=== PATIENT | male | born 1955 | race Caucasian/White ===

== ENCOUNTER 2019-10-16 12:38 | Outpatient (CLI) | payer OTHER, SELFPAY ==
[2019-10-16 13:34] LABS: Blood Urea Nitrogen 29 mg/dL (9-20); Carbon Dioxide 30 mmol/L (22-30); Chloride 100 mmol/L (98-107); Cholesterol 130 mg/dL (0-200); Estimated Glomerular Filt Rate > 60; Glucose 98 mg/dL (75-110); HDL Direct 42 mg/dL; Potassium 3.8 mmol/L (3.4-5.0); Sodium 140 mmol/L (137-145); Triglycerides 84 mg/dL (<150)
[2019-10-16 13:45] LABS: LDL Cholesterol Direct 65 mg/dL
[2019-10-16 14:05] LABS: Prostate Specific Antigen 4.1 ng/mL (< OR = 4.0)
== END 2019-10-16 12:39 | disposition home or self-care (01) ==
PROVIDERS: PCP Internal Medicine; Visit Provider Nurse Practitioner
DX: I10 Essential (primary) hypertension (principal); N40.0 Benign prostatic hyperplasia without lower urinary tract symptoms; Z13.6 Encounter for screening for cardiovascular disorders
CPT/HCPCS: 36415; 80048; 80061; 84153

== ENCOUNTER → 2019-10-30 13:50 | Outpatient (REF) | payer OTHER, SELFPAY | LOC: ANHLAB 13:50 | PROVIDERS: PCP Internal Medicine; Visit Provider Nurse Practitioner Family | DX: D49.2 Neoplasm of unspecified behavior of bone, soft tissue, and skin (principal) | CPT/HCPCS: 88305 ==

== ENCOUNTER 2020-01-08 00:34 | Day surgery (SDC) | payer OTHER, SELFPAY ==
[2020-01-02 09:54] VITALS: BMI 29.2
--- NOTE | 2020-01-07 17:32 | WPDANESEPP ---
Anes - Eval Pre Procedure Procedure: Colonoscopy Operation Date: 01/08/20 08:00 Proposed Procedures p Colonoscopy - Clarence Sorenson MD Date/Time: 01/07/20 17:32 Surgeon: Yas Preop Diagnosis: Ulcerative colitis Pre Op Diagnosis: ulcerateive colitis Patient Data Age: 64 Gender: M Height: 5 ft 11 in Weight: 95 kg Allergies Allergy/AdvReac Type Severity Reaction Status Date / Time oxycodone Allergy Intermediate Itching Verified 01/02/20 09:56 Penicillins Allergy Mild RASH Verified 01/02/20 09:56 Home Medications Medication Instructions Recorded Confirmed Type aspirin 81 mg tablet,delayed 81 mg PO DAILY 07/05/19 01/02/20 History release azathioprine 50 mg tablet 150 mg PO DAILY tablet 07/05/19 01/02/20 History omeprazole 40 mg capsule,delayed 40 mg PO DAILY 07/05/19 01/02/20 History release tamsulosin 0.4 mg capsule 0.4 mg PO DAILY 07/05/19 01/02/20 History beclomethasone dipropionate 80 1 inhalation INHALATION Q12H #10.6 07/26/19 01/02/20 Rx mcg/actuation HFA breath activated gm aerosol albuterol sulfate 90 mcg/actuation 2 puff INHALATION Q6H PRN #6.7 gm 09/17/19 01/02/20 Rx aerosol inhaler fluticasone propionate 50 1 spray NASAL BID #18.2 ml 09/17/19 01/02/20 Rx mcg/actuation nasal spray,suspension lisinopril 20 See Rx Instructions .ROUTE 11/19/19 01/02/20 Rx mg-hydrochlorothiazide 25 mg tablet .COMPLEX #90 tablet montelukast 10 mg tablet 10 mg PO DAILY #90 tablet 11/20/19 01/02/20 Rx hydrocodone 7.5 mg-acetaminophen 1 tablet PO Q6H PRN #120 tablet 12/12/19 01/02/20 Rx 325 mg tablet balsalazide See Rx Instructions .ROUTE .COMPLEX 01/02/20 01/02/20 History Patient hx anesthesia problems: none Family hx anesthesia problems: none PMFSH Past Medical History Medical History (Updated 01/07/20 @ 17:35 by Rod Valladares CRNA) Back pain BPH w/o urinary obs/LUTS Essential hypertension Heartburn Hemorrhoids History of basal cell carcinoma (BCC) of skin Pulmonary embolism, bilateral Rectal hemorrhage due to ulcerative colitis Superficial thrombophlebitis of left upper extremity Ulcerative colitis with complication Umbilical hernia Uncomplicated asthma Ventral hernia without obstruction or gangrene Surgical History Surgical History Presence of right artificial knee joint Family History Family History Sibling Patient's sister is in good health Patient's brother is in good health Father Family history of dementia Patient's father is Family history of arthritis Mother Patient's mother is Family history of arthritis Social History Social History Smoking status: Never smoker Alcohol intake: never Exam Day of Procedure 01/07/20 17:32
[2020-01-08 06:42] VITALS: BMI 30.2
[2020-01-08 06:43] VITALS: BP 147/77; PULSE 67; RESP 18; TEMP 36.8; O2SAT 94
[2020-01-08] MEDS: LACTATED RINGERS 1,000 ML 150 ML IV CONT (06:55)
--- NOTE | 2020-01-08 07:18 | P.PNAN_ITS ---
Anes - Eval Final PreProcedure Day of Procedure 01/08/20 07:18 Patient weight: obese Heart: regular rate and rhythm Lungs: clear to auscultation Airway: Mallampati scale class 1 Neurological: alert and oriented Last oral intake: >/= 8 hours ASA classification: III Emergent: no Anesthetic plan: proceed Anesthesia type and monitoring: general GIVS and standard monitoring Informed Consent: The patient's anesthetic plan and its attendant risks and be nefits were discussed with the patient/family/POA. Questions were solicited and answers provided to the satisfaction of the patient/family/POA.
--- NOTE | 2020-01-08 08:07 | WPDGICN ---
Assessment and Plan Assessment and plan (1) Ulcerative colitis: Code(s): K51.90 - Ulcerative colitis, unspecified, without complications Status: Acute Assessment and Plan: Patient known to have left-sided ulcerative colitis recent symptoms suggestive recent flare. Plan is for colonoscopy to assess status of his colitis and adjust his medications. As symptoms improve enemas will be used less frequently. Further recommendations will be given after endoscopy. (2) Rectal bleeding: Code(s): K62.5 - Hemorrhage of anus and rectum Status: Acute (3) Hemorrhoids: Code(s): K64.9 - Unspecified hemorrhoids Status: Acute Assessment and Plan: Patient reports his hemorrhoids have flared up endoscopy will help determine amount of bleeding from colitis versus is hemorrhoids. Anusol or preparation H are suggested in the interim period and starting to add fiber to his diet may also be beneficial. GI Consult Note Consult date/time: 01/08/20 08:07 HPI: Adam Renae is a 64 year old male Seen in evaluation at the request Dr. Antony Doran. Patient has a history of left-sided ulcerative colitis. Recently had a flare of UC in the fall of 2018. He recently has had reported at least 5 bowel movements a day associated with watery stools. He occasionally has bright red blood per rectum. Over the last month has had decline in the frequency of his bowel movements in decline in the amount of bleeding. He states pain when it occurs is in the low bilateral portion of the abdomen. He denies any weight loss. Current medications include balsalazide 750 mg 4 tablets p.o. b.i.d., Imuran 150 mg p.o. daily mesalamine enemas at bedtime as needed. Review of Systems Review of Systems: All systems reviewed & are unremarkable except as noted in HPI and below PMFSH Past Medical History Medical History Back pain BPH w/o urinary obs/LUTS Essential hypertension Heartburn Hemorrhoids History of basal cell carcinoma (BCC) of skin Pulmonary embolism, bilateral Rectal hemorrhage due to ulcerative colitis Superficial thrombophlebitis of left upper extremity Ulcerative colitis with complication Umbilical hernia Uncomplicated asthma Ventral hernia without obstruction or gangrene Surgical History Surgical History Presence of right artificial knee joint Family History Family History Sibling Patient's sister is in good health Patient's brother is in good health Father Family history of dementia Patient's father is Family history of arthritis Mother Patient's mother is Family history of arthritis Social History Social History Smoking status: Never smoker Alcohol intake: never Meds Home Medications and Allergies Home Medications Medication Instructions Recorded Confirmed Type aspirin 81 mg tablet,delayed 81 mg PO DAILY 07/05/19 01/08/20 History release azathioprine 50 mg tablet 150 mg PO DAILY tablet 07/05/19 01/08/20 History omeprazole 40 mg capsule,delayed 40 mg PO DAILY 07/05/19 01/02/20 History release tamsulosin 0.4 mg capsule 0.4 mg PO DAILY 07/05/19 01/02/20 History beclomethasone dipropionate 80 1 inhalation INHALATION Q12H #10.6 07/26/19 01/08/20 Rx mcg/actuation HFA breath activated gm aerosol albuterol sulfate 90 mcg/actuation 2 puff INHALATION Q6H PRN #6.7 gm 09/17/19 01/08/20 Rx aerosol inhaler fluticasone propionate 50 1 spray NASAL BID #18.2 ml 09/17/19 01/08/20 Rx mcg/actuation nasal spray,suspension lisinopril 20 See Rx Instructions .ROUTE 11/19/19 01/08/20 Rx mg-hydrochlorothiazide 25 mg tablet .COMPLEX #90 tablet montelukast 10 mg tablet 10 mg PO DAILY #90 tablet 11/20/19 01/02/20 Rx hydrocodone 7.5 mg-acetaminoph
[2020-01-08 08:29] VITALS: BP 102/50; PULSE 61; RESP 24; O2SAT 95
[2020-01-08 08:39] VITALS: BP 105/52; PULSE 59; RESP 20; O2SAT 95
[2020-01-08 08:54] VITALS: BP 130/64; PULSE 56; RESP 19; O2SAT 97
== END 2020-01-08 09:01 | disposition home or self-care (01) ==
PROVIDERS: PCP Internal Medicine; Visit Provider Internal Medicine Gastroenterology
PROC: 0DJD8ZZ Inspection of Lower Intestinal Tract, Via Natural or Artificial Opening Endoscopic (ICD-10-PCS; CPT 45378; principal; 2020-01-08 08:00)
DX: K51.311 Ulcerative (chronic) rectosigmoiditis with rectal bleeding (principal); K57.30 Diverticulosis of large intestine without perforation or abscess without bleeding; K64.8 Other hemorrhoids; I10 Essential (primary) hypertension; N40.0 Benign prostatic hyperplasia without lower urinary tract symptoms; J45.909 Unspecified asthma, uncomplicated; Z85.828 Personal history of other malignant neoplasm of skin; Z86.711 Personal history of pulmonary embolism; Z79.82 Long term (current) use of aspirin
CPT/HCPCS: 45380; 88305; J2704; J7120

== ENCOUNTER 2020-03-04 11:16 | Outpatient (CLI) | payer OTHER, SELFPAY ==
[2020-03-04 17:36] LABS: Prostate Specific Antigen 2.7 ng/mL (< OR = 4.0)
== END 2020-03-04 11:17 | disposition home or self-care (01) ==
LOC: ANHLAB 11:18
PROVIDERS: PCP Internal Medicine; Visit Provider Internal Medicine
DX: R97.20 Elevated prostate specific antigen [PSA] (principal)
CPT/HCPCS: 36415; 84153

== ENCOUNTER 2020-04-22 11:41 | Outpatient (CLI) | payer OTHER, SELFPAY ==
[2020-04-22 12:09] LABS: Hemoglobin A1C 5.4 % (<5.7)
[2020-04-22 12:13] LABS: Alanine Aminotransferase 11 U/L (4-50); Albumin Level 4.2 g/dL (3.5-5.1); Alkaline Phosphatase 55 U/L (38-126); Anion Gap 6 mmol/L (8-16); Aspartate Amino Transferase 24 U/L (17-59); Bilirubin,Total 0.3 mg/dL (0.2-1.3); Blood Urea Nitrogen 21 mg/dL (9-20); Calcium 8.8 mg/dL (8.4-10.2); Carbon Dioxide 29 mmol/L (22-30); Chloride 106 mmol/L (98-107); Cholesterol 150 mg/dL (0-200); Estimated Glomerular Filt Rate > 60; Glucose 99 mg/dL (75-110); HDL Direct 52 mg/dL; Sodium 141 mmol/L (137-145); Triglycerides 188 mg/dL (<150)
[2020-04-22 12:25] LABS: LDL Cholesterol Direct 70 mg/dL
== END 2020-04-22 11:42 | disposition home or self-care (01) ==
LOC: ANHLAB 11:43
PROVIDERS: PCP Internal Medicine; Visit Provider Internal Medicine
DX: R73.02 Impaired glucose tolerance (oral) (principal); E78.5 Hyperlipidemia, unspecified; I10 Essential (primary) hypertension; Z51.81 Encounter for therapeutic drug level monitoring
CPT/HCPCS: 36415; 80053; 80061; 83036

== ENCOUNTER 2020-10-27 13:51 | Outpatient (CLI) | payer OTHER, SELFPAY ==
[2020-10-27 14:29] LABS: Hemoglobin A1C 5.4 % (<5.7)
[2020-10-27 14:31] LABS: Anion Gap 8 mmol/L (8-16); Blood Urea Nitrogen 23 mg/dL (9-20); Calcium 9.1 mg/dL (8.4-10.2); Carbon Dioxide 30 mmol/L (22-30); Chloride 106 mmol/L (98-107); Estimated Glomerular Filt Rate > 60; Glucose 99 mg/dL (75-110); Potassium 3.9 mmol/L (3.4-5.0); Sodium 144 mmol/L (137-145)
[2020-10-29 22:31] LABS: Testosterone Total 199 ng/dL (250-1100)
== END 2020-10-27 13:52 | disposition home or self-care (01) ==
PROVIDERS: PCP Internal Medicine; Visit Provider Internal Medicine
DX: R79.89 Other specified abnormal findings of blood chemistry (principal); R73.02 Impaired glucose tolerance (oral); I10 Essential (primary) hypertension
CPT/HCPCS: 36415; 80048; 83036; 84403

== ENCOUNTER → 2020-11-02 14:46 | Outpatient (REF) | payer OTHER, SELFPAY | LOC: ANHLAB 14:46 | PROVIDERS: PCP Internal Medicine; Visit Provider Nurse Practitioner | DX: L98.9 Disorder of the skin and subcutaneous tissue, unspecified (principal) | CPT/HCPCS: 88305; 88342 ==

== ENCOUNTER → 2021-05-03 14:28 | Outpatient (REF) | payer OTHER, SELFPAY | LOC: ANHLAB 14:28 | PROVIDERS: PCP Internal Medicine; Visit Provider Nurse Practitioner | DX: D49.2 Neoplasm of unspecified behavior of bone, soft tissue, and skin (principal); L57.0 Actinic keratosis | CPT/HCPCS: 88305 ==

== ENCOUNTER 2021-05-03 15:01 | Outpatient (CLI) | payer OTHER, SELFPAY ==
[2021-05-06 00:54] LABS: NIL 0.02 IU/mL; Quantiferon TB Plus, 1T NEGATIVE (NEGATIVE)
== END 2021-05-03 15:02 | disposition home or self-care (01) ==
LOC: ANHLAB 15:04
PROVIDERS: PCP Internal Medicine; Visit Provider Internal Medicine Gastroenterology
DX: K51.90 Ulcerative colitis, unspecified, without complications (principal)
CPT/HCPCS: 36415; 86480

== ENCOUNTER 2021-05-03 15:09 | Outpatient (CLI) | payer OTHER, SELFPAY ==
[2021-05-03 16:02] LABS: Alanine Aminotransferase 17 U/L (4-50); Albumin Level 4.3 g/dL (3.5-5.1); Alkaline Phosphatase 65 U/L (38-126); Anion Gap 9 mmol/L (8-16); Aspartate Amino Transferase 29 U/L (17-59); Bilirubin,Total 0.2 mg/dL (0.2-1.3); Blood Urea Nitrogen 19 mg/dL (9-20); Calcium 8.8 mg/dL (8.4-10.2); Carbon Dioxide 29 mmol/L (22-30); Chloride 99 mmol/L (98-107); Cholesterol 149 mg/dL (0-200); Estimated Glomerular Filt Rate > 60; Glucose 120 mg/dL (65-110); HDL Direct 52 mg/dL; Potassium 3.5 mmol/L (3.4-5.0); Sodium 137 mmol/L (137-145); Triglycerides 186 mg/dL (<150)
[2021-05-03 16:13] LABS: LDL Cholesterol Direct 64 mg/dL
[2021-05-03 17:16] LABS: Prostate Specific Antigen 2.3 ng/mL (< OR = 4.0)
[2021-05-03 17:21] LABS: Hemoglobin A1C 5.9 % (<5.7)
[2021-05-07 11:01] LABS: Testosterone Total 496 ng/dL (250-1100)
== END 2021-05-03 15:10 | disposition home or self-care (01) ==
LOC: ANHLAB 15:12
PROVIDERS: PCP Internal Medicine; Visit Provider Internal Medicine
DX: R79.89 Other specified abnormal findings of blood chemistry (principal); I10 Essential (primary) hypertension; Z51.81 Encounter for therapeutic drug level monitoring; E78.5 Hyperlipidemia, unspecified; Z12.5 Encounter for screening for malignant neoplasm of prostate; R73.03 Prediabetes
CPT/HCPCS: 36415; 80053; 80061; 83036; 84153; 84403; 86480; 88305; G0103

== ENCOUNTER → 2021-11-02 13:25 | Outpatient (REF) | payer OTHER, SELFPAY | LOC: ANHLAB 13:25 | PROVIDERS: PCP Internal Medicine; Visit Provider Nurse Practitioner | DX: L82.1 Other seborrheic keratosis (principal) | CPT/HCPCS: 88305 ==

== ENCOUNTER 2021-11-11 12:45 | Outpatient (CLI) | payer OTHER, SELFPAY ==
[2021-11-11 13:27] LABS: Hemoglobin A1C 5.5 % (<5.7)
[2021-11-11 13:47] LABS: Alanine Aminotransferase 17 U/L (4-50); Albumin Level 4.6 g/dL (3.5-5.1); Alkaline Phosphatase 65 U/L (38-126); Anion Gap 7 mmol/L (8-16); Aspartate Amino Transferase 34 U/L (17-59); Bilirubin,Total 0.8 mg/dL (0.2-1.3); Blood Urea Nitrogen 23 mg/dL (9-20); Calcium 8.7 mg/dL (8.4-10.2); Carbon Dioxide 27 mmol/L (22-30); Chloride 105 mmol/L (98-107); Cholesterol 176 mg/dL (0-200); Estimated Glomerular Filt Rate > 60; Glucose 113 mg/dL (65-110); HDL Direct 46 mg/dL; Potassium 3.6 mmol/L (3.4-5.0); Sodium 139 mmol/L (137-145); Triglycerides 83 mg/dL (<150)
[2021-11-11 13:58] LABS: LDL Cholesterol Direct 101 mg/dL
[2021-11-15 11:26] LABS: Testosterone Total 564 ng/dL (250-1100)
== END 2021-11-11 12:46 | disposition home or self-care (01) ==
LOC: ANHLAB 12:52
PROVIDERS: PCP Internal Medicine; Visit Provider Internal Medicine
DX: E78.5 Hyperlipidemia, unspecified (principal); Z51.81 Encounter for therapeutic drug level monitoring; I10 Essential (primary) hypertension; R79.89 Other specified abnormal findings of blood chemistry; R73.03 Prediabetes; Z79.899 Other long term (current) drug therapy
CPT/HCPCS: 36415; 80053; 80061; 83036; 84403

== ENCOUNTER 2022-03-15 13:44 | Outpatient (CLI) | payer OTHER, SELFPAY ==
[2022-03-15 14:06] LABS: Hematocrit 49.8 % (42.0-52.0); Hemoglobin 15.9 g/dL (14.0-18.0); Mean Corpuscular HGB Conc 31.9 g/dl (32-36); Mean Corpuscular Hemoglobin 29.2 pg (26-34); Mean Corpuscular Volume 91.4 fl (80-100); Platelet Count Result 389 k/mm3 (150-375); Red Blood Count 5.45 M/mm3 (4.6-6.20); Red Cell Distribution Width 18.4 % (11.5-14.5); White Blood Count 8.8 K/mm3 (4.5-10.0)
[2022-03-15 14:34] LABS: Alanine Aminotransferase 15 U/L (6-50); Albumin Level 4.1 g/dL (3.5-5.1); Alkaline Phosphatase 56 U/L (38-126); Anion Gap 4 mmol/L (8-16); Aspartate Amino Transferase 26 U/L (17-59); Bilirubin,Total 0.5 mg/dL (0.2-1.3); Blood Urea Nitrogen 16 mg/dL (9-20); CRP 1.7 mg/dL (<1.0); Calcium 8.4 mg/dL (8.4-10.2); Carbon Dioxide 30 mmol/L (22-30); Chloride 103 mmol/L (98-107); Estimated Glomerular Filt Rate > 60; Glucose 120 mg/dL (65-110); Potassium 3.5 mmol/L (3.4-5.0); Sodium 137 mmol/L (137-145)
== END 2022-03-15 13:45 | disposition home or self-care (01) ==
PROVIDERS: PCP Nurse Practitioner; Visit Provider Nurse Practitioner Family
DX: K51.90 Ulcerative colitis, unspecified, without complications (principal)
CPT/HCPCS: 36415; 80053; 85027; 86140

== ENCOUNTER 2022-03-16 09:20 | Outpatient (CLI) | payer OTHER, SELFPAY ==
[2022-03-16 10:57] LABS: Toxigenic C. Diff NEGATIVE (NEGATIVE)
[2022-03-21 23:02] LABS: Calprotectin, Stool 469 mcg/g
== END 2022-03-16 09:21 | disposition home or self-care (01) ==
PROVIDERS: PCP Nurse Practitioner; Visit Provider Nurse Practitioner Family
DX: K51.90 Ulcerative colitis, unspecified, without complications (principal)
CPT/HCPCS: 83993; 87045; 87427; 87493

== ENCOUNTER 2022-04-21 12:41 | Emergency (ER) | payer OTHER, SELFPAY ==
[2022-04-21 12:48] VITALS: BP 148/68; PULSE 63; RESP 16; TEMP 36.9; O2SAT 97
--- NOTE | 2022-04-21 12:49 | ED.NAVMDI ---
HPI - Nausea/Vomiting/Diarrhea General Stated complaint: Abdominal Pain Time Seen by Provider: 04/21/22 12:49 Source: patient Mode of arrival: ambulatory Limitations: no limitations History of Present Illness HPI Narrative: Mr. Renae is a 67-year-old male patient presenting to the clinic today with complaints of generalized abdominal discomfort, bloody diarrhea greater than 13 stools per day over the last few days. He states he has had this bloody diarrhea for 5 weeks now. Has tried Imodium and Kaopectate to slow the diarrhea down. He has a history of ulcerative colitis. He has tried to contact his GI specialist Dr. Arrieta however he was unable to speak with the office and has left several messages this week. Contacted his PCP and has an appointment next . He comes in today requesting antibiotics for possible C. difficile as he has had this in the past and he thinks that his diarrhea may be due to C. difficile. He denies any abnormal abdominal distention and reports he is having some sharp cramping pains that come and go. Related Data Home Medications Medication Instructions Recorded Confirmed aspirin 81 mg tablet,delayed 81 mg PO DAILY 07/05/19 04/21/22 release (Adult Low Dose Aspirin) loratadine 10 mg tablet 10 mg PO DAILY 10/29/20 04/21/22 budesonide 3 mg 9 mg PO DIRECTED 04/21/22 04/21/22 capsule,delayed,extended release Allergies Allergy/AdvReac Type Severity Reaction Status Date / Time oxycodone Allergy Intermediate Itching Verified 04/21/22 12:43 Penicillins Allergy Mild RASH Verified 04/21/22 12:43 Review of Systems Review of Systems: Pertinent positives per HPI. Patient denies any fever, chills, rash, headache, visual changes, dizziness, cough, runny nose, sore throat, shortness of breath, chest pain, palpitations, nausea, vomiting, constipation, or any urinary issues. [facility] Past Medical History Medical History Back pain BPH w/o urinary obs/LUTS Essential hypertension Heartburn Hemorrhoids History of basal cell carcinoma (BCC) of skin Impaired glucose tolerance Obesity Pulmonary embolism, bilateral Rectal hemorrhage due to ulcerative colitis Superficial thrombophlebitis of left upper extremity Ulcerative colitis with complication Umbilical hernia Uncomplicated asthma Ventral hernia without obstruction or gangrene Surgical History Surgical History Presence of right artificial knee joint Family History Family History Sibling Patient's sister is in good health Patient's brother is in good health Father Family history of dementia Patient's father is Family history of arthritis Mother Patient's mother is Family history of arthritis Social History Social History Smoking status: Never smoker Second hand tobacco smoke exposure: No Alcohol intake: never Substance use: never Comments At the time of my signature, I reviewed and agree with the nursing past medical, surgical, social, and family history. There is no relevant family history pertinent to the patient complaint. Exam Narrative: General: Well-developed, obese, in no apparent distress. Head: Normocephalic, atraumatic. Cardio: Regular rate and rhythm, s1 and s2 normal, no murmur appreciated. Resp: Clear to auscultation bilaterally, no rhonchi, rales, wheezing or rubs. Abdomen: Soft, pliable, nondistended, generalized tenderness to palpation in all 4 quadrants, bowel sounds present in all quadrants, no organomegly, no CVAT tenderness. Course Course Emergency Course: Portions of this record may have been created with voice recognition software. Level of Care: Express Care Visit Vital Signs Vital signs: Vital Signs Temperature 36.9 C
== END 2022-04-21 13:28 | disposition short-term general hospital (02) ==
PROVIDERS: Emergency Provider Nurse Practitioner Family; PCP Internal Medicine
DX: K51.90 Ulcerative colitis, unspecified, without complications (principal); R19.7 Diarrhea, unspecified; N40.0 Benign prostatic hyperplasia without lower urinary tract symptoms; I10 Essential (primary) hypertension; R12 Heartburn; E66.9 Obesity, unspecified; Z68.34 Body mass index [BMI] 34.0-34.9, adult; Z86.711 Personal history of pulmonary embolism; Z86.72 Personal history of thrombophlebitis; Z96.651 Presence of right artificial knee joint
CPT/HCPCS: 99212; G0463

== ENCOUNTER 2022-04-21 14:05 | Emergency (ER) | payer OTHER, SELFPAY ==
[2022-04-21 14:09] VITALS: BP 159/64; PULSE 68; RESP 16; TEMP 36.8; O2SAT 98
--- NOTE | 2022-04-21 14:18 | ED.NAVMDI ---
HPI - Nausea/Vomiting/Diarrhea General Chief complaint: Nausea/Vomiting/Diarrhea Stated complaint: abdominal pain Time Seen by Provider: 04/21/22 14:07 History of Present Illness HPI Narrative: Patient is a 67-year-old male with history of ulcerative colitis here for evaluation of diarrhea and intermittent crampy abdominal pain for the past 6 weeks. Notes urgency with stooling and that his stools are pink-tinged, upon sx onset he was having 6-8 loose stools per day but the frequency has increased to 10-13 episodes day. He has a history of ulcerative colitis and states that this feels like a flare-up; he also has a history of C. difficile and states that this feels similar. Denies recent abx use. He denies relief after Imodium. He is on Imuran and balsalazide for UC, last treated for flare with oral steroids in March. He is a patient of Dr. Sorenson, GI specialist. He went to an urgent care facility today, provider there spoke with the on-call GI doctor, Dr. Davidson, who recommended ED eval for labs and stool cultures. Denies fevers, nausea, vomiting, rash, sick contacts. Last colonoscopy?12/2019, biopsies revealed marked diffuse chronic colitis, were considering flex sigmoidoscopy if unimproved. Related Data Home Medications Medication Instructions Recorded Confirmed aspirin 81 mg tablet,delayed 81 mg PO DAILY 07/05/19 04/21/22 release (Adult Low Dose Aspirin) loratadine 10 mg tablet 10 mg PO DAILY 10/29/20 04/21/22 budesonide 3 mg 9 mg PO DIRECTED 04/21/22 04/21/22 capsule,delayed,extended release Allergies Allergy/AdvReac Type Severity Reaction Status Date / Time oxycodone Allergy Intermediate Itching Verified 04/21/22 14:13 Penicillins Allergy Mild RASH Verified 04/21/22 14:13 Review of Systems Review of Systems: Gen: Denies fevers or chills Eyes: Denies eye pain or visual change ENT: Denies congestion Respiratory: Denies shortness of breath or cough CV: Denies chest pain or palpitations GI: Reports abdominal pain and diarrhea. denies burning, urgency, frequency or hematuria Musculoskeletal: Denies back pain or muscle pain Neuro: Denies numbness, tingling, weakness or focal weakness Skin: Denies rash Except as documented, all other systems reviewed and negative PMFSH Past Medical History Medical History Back pain BPH w/o urinary obs/LUTS Essential hypertension Heartburn Hemorrhoids History of basal cell carcinoma (BCC) of skin Impaired glucose tolerance Obesity Pulmonary embolism, bilateral Rectal hemorrhage due to ulcerative colitis Superficial thrombophlebitis of left upper extremity Ulcerative colitis with complication Umbilical hernia Uncomplicated asthma Ventral hernia without obstruction or gangrene Surgical History Surgical History Presence of right artificial knee joint Family History Family History Sibling Patient's sister is in good health Patient's brother is in good health Father Family history of dementia Patient's father is Family history of arthritis Mother Patient's mother is Family history of arthritis Social History Social History Smoking status: Never smoker Second hand tobacco smoke exposure: No Alcohol intake: never Substance use: never Exam Narrative: APPEARANCE: Well appearing, no pain in distress, well-nourished. Head: Normocephalic and atraumatic. EYES: PERRLA/EOMI, conjunctivae clear NOSE: No nasal drainage EARS: External ear normal in appearance THROAT: Oropharynx is clear. Mucous membranes are moist. NECK: Supple. No adenopathy, no masses. RESPIRATORY: Airway patent, respirations nonlabored. Clear to auscultation bilaterally, no rales, rhonchi, wheezing. CARDIOVASCULAR: Regular ra
[2022-04-21] MEDS: SODIUM CHLORIDE 0.9% IV 1,000 ML 999 ML IV CONT (14:24)
--- NOTE | 2022-04-21 14:29 | PC.NURSE ---
Per KERRIE Robin, no orthostatic blood pressures needed.
[2022-04-21 14:30] LABS: Basophils Percent Auto 0.2 % (0.2-1.2); Eosinophils Absolute Auto 0.2 K/mm3 (0-0.3); Eosinophils Percent Auto 1.8 % (0-4.4); Immature Granulocyte Absolute 0.04 K/mm3 (0.00-0.031); Immature Granulocyte Percent A 0.3 % (0-0.5); Lymphocytes Absolute Auto 1.88 K/mm3 (0.9-3.2); Lymphocytes Percent Auto 15.6 % (18.3-44.2); Mean Corpuscular HGB Conc 32.7 g/dl (32-36); Mean Corpuscular Hemoglobin 29.2 pg (26-34); Mean Corpuscular Volume 89.4 fl (80-100); Mean Platelet Volume 9.5 fl (7.4-10.4); Monocytes Absolute Auto 1.2 K/mm3 (0.1-0.6); Monocytes Percent Auto 10.2 % (2.6-8.5); Neutrophils Absolute Auto 8.7 K/mm3 (1.3-6.7); Neutrophils Percent Auto 71.9 % (45.5-73.1); Platelet Count Result 354 k/mm3 (150-375); Red Blood Count 5.48 M/mm3 (4.6-6.20); Red Cell Distribution Width 19.5 % (11.5-14.5); White Blood Count 12.1 K/mm3 (4.5-10.0)
--- NOTE | 2022-04-21 14:30 | PC.NURSE ---
Patient aware of the need to give urine specimen. States he cannot at this time.
[2022-04-21 15:15] LABS: Anion Gap 7 mmol/L (8-16); Blood Urea Nitrogen 19 mg/dL (9-20); Carbon Dioxide 31 mmol/L (22-30); Chloride 100 mmol/L (98-107); Estimated CRCL calculation 99 ml/min; Potassium 3.5 mmol/L (3.4-5.0); Sodium 138 mmol/L (137-145)
[2022-04-21 15:16] LABS: Alanine Aminotransferase 17 U/L (6-50); Albumin Level 4.3 g/dL (3.5-5.1); Alkaline Phosphatase 55 U/L (38-126); Aspartate Amino Transferase 27 U/L (17-59); Bilirubin,Total 0.7 mg/dL (0.2-1.3); Calcium 8.2 mg/dL (8.4-10.2); Estimated Glomerular Filt Rate > 60; Glucose 97 mg/dL (65-110)
[2022-04-21 15:16] LABS: Appearance Urine Clear (Clear); Bilirubin Urine Negative (Negative); Blood Urine Negative (Negative); Color Urine Yellow (Yellow); Glucose Urine UA Negative (Negative); Ketones Urine Negative (Negative); Leukocyte Esterase Ur Negative LEU/UL (Negative); Nitrate Urine Negative (Negative); Protein Urine Negative (Negative); Urobilinogen Urine 0.2 mg/dL (<2.0)
[2022-04-21 15:17] LABS: Add Urine Microscopic? NO
[2022-04-21 15:18] VITALS: BP 119/76; PULSE 55; RESP 18; O2SAT 99
[2022-04-21 15:22] LABS: INR 1.1; Prothrombin Time 13.6 Seconds (11.1-14.7)
[2022-04-21 15:23] LABS: Partial Thromboplastin Time 31.3 SECONDS (22.3-36.8)
[2022-04-21 15:51] LABS: CRP 3.5 mg/dL (<1.0)
[2022-04-21] MEDS: metroNIDAZOLE 250 MG TABLET 500 MG PO (16:20)
[2022-04-21] MEDS: predniSONE 20 MG TABLET 40 MG PO (16:21)
[2022-04-21 16:33] VITALS: BP 144/72; PULSE 61; RESP 16; TEMP 36.5; O2SAT 97
[2022-04-21 16:34] LABS: Toxigenic C. Diff NEGATIVE (NEGATIVE)
== END 2022-04-21 16:35 | disposition home or self-care (01) ==
PROVIDERS: Physician Assistant; Emergency Provider Emergency Medicine; PCP Internal Medicine
DX: K51.90 Ulcerative colitis, unspecified, without complications (principal); N40.0 Benign prostatic hyperplasia without lower urinary tract symptoms; I10 Essential (primary) hypertension; J45.909 Unspecified asthma, uncomplicated
CPT/HCPCS: 36415; 80053; 81003; 85025; 85610; 85730; 86140; 86850; 86900; 86901; 87493; 96360; 99283; A9270; J7030; J7512

== ENCOUNTER 2022-05-28 16:55 | Emergency (ER) | payer OTHER, SELFPAY ==
--- NOTE | 2022-05-28 17:03 | ED.URI ---
HPI - URI/Sore Throat General Chief Complaint: Upper Respiratory Infection Stated Complaint: Sore Throat, Coughing, Wheezing Time Seen by Provider: 05/28/22 17:03 Source: patient Mode of arrival: ambulatory Limitations: no limitations History of Present Illness HPI Narrative: Mr. Renae is a 67-year-old male patient presenting to clinic today with complaints of cough, sore throat, nasal congestion, wheezing. He reports his tested positive for COVID and influenza 2 days ago. He reports that he developed symptoms last night. MD elicited complaint: cough, sore throat, nasal congestion and other (Wheezing) Related Data Home Medications Medication Instructions Recorded Confirmed azathioprine 50 mg tablet 50 mg PO DAILY 05/28/22 05/28/22 balsalazide 750 mg capsule 750 mg PO DAILY 05/28/22 05/28/22 clemastine 2.68 mg tablet 2.68 mg PO DAILY 05/28/22 05/28/22 gabapentin 300 mg capsule 300 mg PO DAILY 05/28/22 05/28/22 hydrocodone 7.5 mg-acetaminophen 1 tablet PO DIRECTED 05/28/22 05/28/22 325 mg tablet montelukast 10 mg tablet 10 mg PO DAILY 05/28/22 05/28/22 pantoprazole 40 mg tablet,delayed 40 mg PO DAILY 05/28/22 05/28/22 release prednisone 5 mg tablet 5 mg PO DAILY 05/28/22 05/28/22 ropinirole 0.5 mg tablet mg 05/28/22 tamsulosin 0.4 mg capsule mg PO 05/28/22 Allergies Allergy/AdvReac Type Severity Reaction Status Date / Time No Known Allergies Allergy Verified 05/28/22 17:20 Review of Systems Review of Systems: Pertinent positives per HPI. Patient denies any fever, chills, rash, headache, visual changes, dizziness, shortness of breath, chest pain, palpitations, nausea, vomiting, diarrhea, constipation, abdominal pain, or any urinary issues. [facility] Comments At the time of my signature, I reviewed and agree with the nursing past medical, surgical, social, and family history. There is no relevant family history pertinent to the patient complaint. Exam Narrative: General: Well-developed, overweight, in no apparent distress Head: Normocephalic, atraumatic Eyes: Pupils equally round and reactive to light bilaterally, EOM intact, sclera and conjunctive clear, no discharge, lids normal Ears: TMs intact and clear, ear canals clear, no drainage, grossly hearing normal. Nose: Nares patent, clear nasal discharge, mild inflammation, no sinus tenderness. Mouth: Oral pharynx without lesions or masses, good dentition, MMM. Oropharynx mildly red, postnasal drip Neck: Supple, trachea midline, no enlargement of anterior or posterior cervical nodes, no thyroid masses or goiter palpable. Cardio: Regular rate and rhythm, s1 and s2 normal, no murmur appreciated. Resp: Clear to auscultation bilaterally, no rhonchi, rales, wheezing or rubs Course Course Emergency Course: Portions of this record may have been created with voice recognition software. Level of Care: Express Care Visit Vital Signs Vital signs: Vital Signs Temperature 37.2 C 05/28/22 17:08 Pulse Rate 82 05/28/22 17:08 Respiratory Rate 16 05/28/22 17:08 Blood Pressure 140/64 05/28/22 17:08 Pulse Oximetry 97 05/28/22 17:08 Oxygen Delivery Room Air 05/28/22 17:08 Temperature 37.2 C 05/28/22 17:08 Pulse Rate 82 05/28/22 17:08 Respiratory Rate 16 05/28/22 17:08 Blood Pressure 140/64 05/28/22 17:08 Pulse Oximetry 97 05/28/22 17:08 Oxygen Delivery Room Air 05/28/22 17:08 Vital signs reviewed MDM - URI/Sore Throat MDM Narrative Medical decision making narrative: At the time of visit patient is resting comfortably on the exam table. COVID testing and influenza testing completed in clinic. COVID testing and influenza testing was positive for COVID and influenza A in the clinic today. Patient is requesting paxlovid and Tamiflu. He states that they gave his these medications and she seems to be doing better after the 2 days. Supportive measures were discussed with the patient he voiced understanding
[2022-05-28 17:08] VITALS: BP 140/64; PULSE 82; RESP 16; TEMP 37.2; O2SAT 97
== END 2022-05-28 17:38 | disposition home or self-care (01) ==
PROVIDERS: Emergency Provider Nurse Practitioner Family; PCP Internal Medicine
DX: U07.1 COVID-19 (principal); J10.1 Influenza due to other identified influenza virus with other respiratory manifestations
CPT/HCPCS: 87426; 87804; 99203; C9803; G0463

== ENCOUNTER 2022-06-16 02:01 | Day surgery (SDC) | payer OTHER, SELFPAY ==
[2022-06-03 14:40] VITALS: BMI 33.8
[2022-06-16] MEDS: LACTATED RINGERS 1,000 ML 150 ML IV CONT (11:21)
--- NOTE | 2022-06-16 11:22 | WPDHPUPDATE1 ---
History and Physical Update Update Date/Time: 06/16/22 11:22 History and Physical has been reviewed, including an updated exam of the patient. There are NO changes in the patient's condition. Risks, benefits, and alternatives have been discussed and questions answered. Patient agrees to proceed with procedure.
[2022-06-16 11:23] VITALS: BP 124/99; PULSE 90; RESP 18; TEMP 36.3; O2SAT 96; BMI 33.9
--- NOTE | 2022-06-16 11:37 | WPDANESEPPF ---
Anes - Initial Pre Proc Eval Procedure: Operation Date: 06/16/22 12:30 Proposed Procedures p Flexible Sigmoidoscopy - Clarence Sorenson MD Date/Time: 06/16/22 11:37 Surgeon: Clarence Sorenson MD Pre Op Diagnosis: ulcerative colitis Patient Data Age: 67 Gender: M Height: 1.8 m Weight: 110.4 kg Last Vital Signs Temp 97.3 F L 06/16/22 11:23 Pulse 90 06/16/22 11:23 Resp 18 06/16/22 11:23 BP 124/99 H 06/16/22 11:23 Pulse Ox 96 06/16/22 11:23 O2 Del Method Room Air 06/16/22 11:23 Allergies Allergy/AdvReac Type Severity Reaction Status Date / Time oxycodone Allergy Intermediate Itching Verified 06/16/22 11:17 Penicillins Allergy Mild RASH Verified 06/16/22 11:17 Home Medications Medication Instructions Recorded Confirmed Type aspirin 81 mg tablet,delayed 81 mg PO TID 07/05/19 06/16/22 History release (Adult Low Dose Aspirin) fluticasone propionate 110 1 puff inhalation Q12H #12 grams 06/29/20 06/16/22 Rx mcg/actuation HFA aerosol inhaler (Flovent HFA) loratadine 10 mg tablet 10 mg PO DAILY 10/29/20 06/16/22 History lisinopril 20 See Rx Instructions .Route 03/17/21 06/16/22 Rx mg-hydrochlorothiazide 25 mg tablet .COMPLEX #90 tabs cyclobenzaprine 10 mg tablet 10 mg PO TID PRN muscle spasm #30 05/05/21 06/16/22 Rx tabs albuterol sulfate 90 mcg/actuation See Rx Instructions .Route 07/20/21 06/16/22 Rx aerosol inhaler .COMPLEX ##8.5 pantoprazole 40 mg tablet,delayed 40 mg PO QAM #90 tabs 11/12/21 06/16/22 Rx release testosterone 30 mg/actuation (1.5 2 pump topical DAILY #90 mL 02/28/22 06/16/22 Rx mL) transderm solution metered pump prednisone 5 mg tablet 5 mg PO DAILY #242 tabs 04/20/22 06/16/22 Rx ropinirole 0.5 mg tablet 0.5 mg PO DAILY #90 tabs 05/12/22 06/16/22 Rx azathioprine 50 mg tablet 50 mg PO TID 05/28/22 06/16/22 History balsalazide 750 mg capsule 750 mg PO DAILY 05/28/22 06/16/22 History montelukast 10 mg tablet 10 mg PO DAILY 05/28/22 06/16/22 History hydrocodone 7.5 mg-acetaminophen 1 tablet PO Q6H PRN pain #120 tabs 05/31/22 06/16/22 Rx 325 mg tablet tamsulosin 0.4 mg capsule (Flomax) 0.4 mg PO DAILY #90 caps 06/03/22 06/16/22 Rx clemastine 2.68 mg tablet See Rx Instructions .Route 06/13/22 06/16/22 Rx .COMPLEX #180 tabs gabapentin 300 mg capsule 300 mg PO DAILY #30 caps 06/13/22 06/16/22 Rx Patient hx anesthesia problems: none Family hx anesthesia problems: none Results Review: All pre-operative results and documents have been reviewed as part of the pre-operative evaluation. [facility] Past Medical History Medical History Back pain BPH w/o urinary obs/LUTS Essential hypertension Heartburn Hemorrhoids History of basal cell carcinoma (BCC) of skin Impaired glucose tolerance Obesity Pulmonary embolism, bilateral Rectal hemorrhage due to ulcerative colitis Superficial thrombophlebitis of left upper extremity Ulcerative colitis with complication Umbilical hernia Uncomplicated asthma Ventral hernia without obstruction or gangrene Surgical History Surgical History Presence of right artificial knee joint Family History Family History (System 06/02/22 @ 09:44 by Rima Mcginnis) Sibling Patient's sister is in good health Patient's brother is in good health Father Family history of dementia Patient's father is Family history of arthritis Mother Patient's mother is Family history of arthritis Social History Social History (System 06/02/22 @ 09:44 by Rima Mcginnis) Smoking status: Never smoker Second hand tobacco smoke exposure: No Alcohol intake: never Substance use: never Substance use type: does not use Living arrangements: with family Spiritual care concerns: No Anes - Eval Final PreProcedure Day of Procedure 06/16/22 11:37 Patient weight: obese Heart: regular
[2022-06-16 12:10] VITALS: BP 88/53; PULSE 76; RESP 22; O2SAT 95
[2022-06-16 12:20] VITALS: BP 103/49; PULSE 83; RESP 20; O2SAT 94
[2022-06-16 12:30] VITALS: BP 111/55; PULSE 74; RESP 19; O2SAT 95
== END 2022-06-16 12:42 | disposition home or self-care (01) ==
PROVIDERS: PCP Internal Medicine; Visit Provider Internal Medicine Gastroenterology
PROC: 0DJD8ZZ Inspection of Lower Intestinal Tract, Via Natural or Artificial Opening Endoscopic (ICD-10-PCS; CPT 45330; principal; 2022-06-16 12:30)
DX: K92.1 Melena (principal); K51.30 Ulcerative (chronic) rectosigmoiditis without complications; K51.40 Inflammatory polyps of colon without complications; N40.0 Benign prostatic hyperplasia without lower urinary tract symptoms; I10 Essential (primary) hypertension; R12 Heartburn; Z85.828 Personal history of other malignant neoplasm of skin; Z86.711 Personal history of pulmonary embolism; Z86.72 Personal history of thrombophlebitis; Z79.82 Long term (current) use of aspirin; Z79.51 Long term (current) use of inhaled steroids; E66.9 Obesity, unspecified; Z68.33 Body mass index [BMI] 33.0-33.9, adult
CPT/HCPCS: 45380; 45385; 88305; J2704; J7120

== ENCOUNTER 2022-06-29 13:31 | Outpatient (CLI) | payer OTHER, SELFPAY ==
--- NOTE | ~2022-06-29 | XR_ITS ---
EXAMINATION: XR hip RT min 2V DATE: 06/29/2022 13:51 INDICATION: Right hip pain TECHNIQUE: Two views of right hip were obtained. COMPARISON: 12/21/2012 FINDINGS: Bone alignment is normal. There is no fracture. Phleboliths are noted in the pelvis. There is mild osteoarthritis of the hip. Prostatic calcifications are noted. IMPRESSION: 1. Mild osteoarthritis of the hip. Reviewed, dictated and finalized at location A.
== END 2022-06-29 13:32 | disposition home or self-care (01) ==
PROVIDERS: PCP Internal Medicine; Visit Provider Internal Medicine
DX: M25.551 Pain in right hip (principal); M54.16 Radiculopathy, lumbar region; M16.11 Unilateral primary osteoarthritis, right hip
CPT/HCPCS: 73502

== ENCOUNTER 2022-07-01 10:58 | Outpatient (CLI) | payer OTHER, SELFPAY ==
--- NOTE | ~2022-07-01 | MR_ITS ---
EXAMINATION: MR lumbar spine wo con DATE: 07/01/2022 12:02 INDICATION: Low back pain. TECHNIQUE: Magnetic resonance imaging (MRI) of the lumbar spine was performed without intravenous con trast. Sequences included sagittal T2-weighted FSE, sagittal T2-weighted FS FSE, sagittal T1-weighted FSE, and axial T2-weighted FSE. COMPARISON: None FINDINGS: There is 16 degrees dextroscoliosis of thoracic lumbar spine. There is mild chronic anterio r wedging of T11 vertebral body. There is moderately decreased disc height from T11-T12 through 1-L2, severely decreased disc height at L2-L3, moderately decreased disc height at L3-L4, and severely dec reased disc height at L4-L5 and L5-S1 with endplate remodeling. The distal spinal cord signal intensi ty is normal. The conus medullaris is at L1. The following disc levels are specifically discussed: L1-L2: The disc is bulging. There is severe bilateral facet joint osteoarthritis. There is mild bilat eral neural foraminal stenosis. There is mild central canal stenosis. L2-L3: The disc is bulging and has an annular fissure. There is severe right and mild left facet join t osteoarthritis. There is moderate right and mild left neural foraminal stenosis. There is mild cent ral canal stenosis. L3-L4: The disc is bulging and has an annular fissure. There is mild bilateral facet joint osteoarthr itis. There is moderate right and mild left neural foraminal stenosis. There is mild central canal st enosis. L4-L5: The disc is bulging and has an annular fissure. There is severe right and moderate left facet joint osteoarthritis. There is moderate bilateral neural foraminal stenosis. There is mild central ca nal stenosis. L5-S1: The disc is bulging and has an annular fissure. There is severe bilateral facet joint osteoart hritis. There is mild bilateral neural foraminal stenosis. There is mild central canal stenosis. IMPRESSION: 1. Severe lumbar spondylosis. Reviewed, dictated and finalized at location A.
== END 2022-07-01 10:59 | disposition home or self-care (01) ==
PROVIDERS: PCP Internal Medicine; Visit Provider Internal Medicine
DX: M54.16 Radiculopathy, lumbar region (principal); M43.06 Spondylolysis, lumbar region
CPT/HCPCS: 72148

== ENCOUNTER 2022-09-05 15:22 | Emergency (ER) | payer OTHER, SELFPAY ==
[2022-09-05 16:08] VITALS: BP 138/80; PULSE 79; RESP 18; TEMP 36.5; O2SAT 96
--- NOTE | 2022-09-05 17:06 | ED.URI ---
HPI - URI/Sore Throat General Chief Complaint: Upper Respiratory Infection Stated Complaint: Sinus Time Seen by Provider: 09/05/22 17:07 Source: patient, RN notes reviewed and old records reviewed Mode of arrival: ambulatory Limitations: no limitations History of Present Illness HPI Narrative: 67-year-old male presents to the [facility] with complaints of sinus congestion since last night. States he took a plane home from [place] on Monday, 3 days ago and thinks he has COVID symptoms. Did not test at home. Also concern for influenza. Took 1 Mucinex today which is helping his symptoms Related Data Home Medications Medication Instructions Recorded Confirmed aspirin 81 mg tablet,delayed 81 mg PO TID 07/05/19 09/06/22 release (Adult Low Dose Aspirin) azathioprine 50 mg tablet 50 mg PO TID 05/28/22 09/06/22 balsalazide 750 mg capsule 750 mg PO DAILY 05/28/22 09/06/22 montelukast 10 mg tablet 10 mg PO DAILY 05/28/22 09/06/22 Allergies Allergy/AdvReac Type Severity Reaction Status Date / Time oxycodone Allergy Intermediate Itching Verified 09/06/22 15:06 Penicillins Allergy Mild RASH Verified 09/06/22 15:06 Review of Systems Review of Systems: All systems reviewed & are unremarkable except as noted in HPI and below Constitutional: Constitutional: Reports no additional constitutional complaints Eyes: Eyes: Reports no additional eye complaints ENT: Reports as per HPI and Reports nasal congestion Cardiovascular: Cardiovascular: Reports no additional cardiovascular complaints, Denies chest pain and Denies dyspnea Respiratory: Respiratory: Reports no additional respiratory complaints, Denies chest congestion, Denies cough and Denies dyspnea Gastrointestinal: Gastrointestinal: Reports no additional gastrointestinal complaints, Denies abdominal pain, Denies nausea and Denies vomiting Musculoskeletal: Musculoskeletal: Reports no additional musculoskeletal complaints Integumentary/Breasts: Skin/Breast: Reports system reviewed and no additional complaints, except as docu Neurologic: Reports system reviewed and no additional complaints, except as documented Psychiatric: Psychiatric: Reports no additional psychiatric complaints Allergic/Immunologic: Allergic/Immunologic: Reports no additional allergic/immunologic complaints PMFSH Past Medical History Medical History Back pain BPH w/o urinary obs/LUTS Essential hypertension Heartburn Hemorrhoids History of basal cell carcinoma (BCC) of skin Impaired glucose tolerance Obesity LENKA (obstructive sleep apnea) Pulmonary embolism, bilateral Rectal hemorrhage due to ulcerative colitis Superficial thrombophlebitis of left upper extremity Ulcerative colitis with complication Umbilical hernia Uncomplicated asthma Ventral hernia without obstruction or gangrene Surgical History Surgical History History of lumbar surgery Presence of right artificial knee joint Family History Family History Sibling Patient's sister is in good health Patient's brother is in good health Father Family history of dementia Patient's father is Family history of arthritis Mother Patient's mother is Family history of arthritis Social History Social History Smoking status: Never smoker Second hand tobacco smoke exposure: No Alcohol intake: never Substance use: never Substance use type: does not use Lack of Transportation: No Lack of Food: Sometimes True Current Housing: Decline to Answer Concerned About Future Housing: Decline to Answer Difficulty Paying Gas/Electric Bills: Decline to Answer Difficulty Paying for Meds: Decline to Answer Currently Unemployed: Decline to Answer Education: Associate Degree Difficulty w/ Childcare or
== END 2022-09-05 17:58 | disposition home or self-care (01) ==
PROVIDERS: Emergency Provider Nurse Practitioner; PCP Internal Medicine
DX: J06.9 Acute upper respiratory infection, unspecified (principal); I10 Essential (primary) hypertension; Z79.82 Long term (current) use of aspirin; Z85.828 Personal history of other malignant neoplasm of skin; Z20.822 Contact with and (suspected) exposure to COVID-19
CPT/HCPCS: 87426; 87804; 99213; C9803; G0463

== ENCOUNTER 2022-10-10 12:25 | Outpatient (CLI) | payer OTHER, SELFPAY ==
[2022-10-10 13:38] LABS: Hematocrit 49.4 % (42.0-52.0); Hemoglobin 16.4 g/dL (14.0-18.0); Mean Corpuscular HGB Conc 33.2 g/dl (32-36); Mean Corpuscular Volume 96.5 fl (80-100); Mean Platelet Volume 9.3 fl (7.4-10.4); Platelet Count Result 341 k/mm3 (150-375); Red Blood Count 5.12 M/mm3 (4.6-6.20); Red Cell Distribution Width 14.9 % (11.5-14.5)
[2022-10-10 13:51] LABS: Potassium 3.7 mmol/L (3.4-5.0)
[2022-10-10 13:52] LABS: Alanine Aminotransferase 19 U/L (6-50); Albumin Level 4.6 g/dL (3.5-5.1); Alkaline Phosphatase 59 U/L (38-126); Anion Gap 6 mmol/L (8-16); Aspartate Amino Transferase 28 U/L (17-59); Bilirubin,Total 0.8 mg/dL (0.2-1.3); Blood Urea Nitrogen 24 mg/dL (9-20); Calcium 8.9 mg/dL (8.4-10.2); Carbon Dioxide 32 mmol/L (22-30); Chloride 101 mmol/L (98-107); Estimated Glomerular Filt Rate > 60; Glucose 103 mg/dL (65-110); INR 1.1; Partial Thromboplastin Time 30.5 SECONDS (22.3-36.8); Prothrombin Time 13.3 Seconds (11.1-14.7); Sodium 139 mmol/L (137-145)
== END 2022-10-10 12:26 | disposition home or self-care (01) ==
LOC: ANHLAB 12:26
PROVIDERS: PCP Internal Medicine; Visit Provider Neurological Surgery
DX: Z01.818 Encounter for other preprocedural examination (principal); Z79.01 Long term (current) use of anticoagulants
CPT/HCPCS: 36415; 80053; 85027; 85610; 85730; 86850; 86900; 86901

== ENCOUNTER 2022-10-19 12:14 | Outpatient (CLI) | payer OTHER, SELFPAY ==
--- NOTE | 2022-10-19 12:28 | ECG_ITS ---
Measurements Intervals [place] Rate: 64 P: 68 ND: 201 QRS: -29 QRSD: 101 T: 14 QT: 410 QTc: 423 Interpretive Statements SINUS RHYTHM BORDERLINE LEFT AXIS DEVIATION [QRS AXIS < -20] MINIMAL VOLTAGE CRITERIA FOR LVH, CONSIDER NORMAL VARIANT [MEETS CRITERIA IN ONE OF: R(aVL), S(V1), R(V5), R(V5/V6)+S(V1)] NO PREVIOUS ECG AVAILABLE FOR COMPARISON Electronically Signed On 10-19-2022 16:16:41 PELLET PRESS OPERATOR by Yaz Hubbard M.D.
== END 2022-10-19 12:15 | disposition home or self-care (01) ==
PROVIDERS: PCP Internal Medicine; Visit Provider Neurological Surgery
DX: Z01.812 Encounter for preprocedural laboratory examination (principal); Z01.810 Encounter for preprocedural cardiovascular examination; M51.16 Intervertebral disc disorders with radiculopathy, lumbar region
CPT/HCPCS: 36415; 86850; 86900; 86901; 93005

== ENCOUNTER 2022-10-26 00:08 | Day surgery (SDC) | payer OTHER, SELFPAY ==
--- NOTE | 2022-10-18 09:34 | PC.NURSE ---
Report to the Outpatient Waiting Room, entrance under the green pavilion located off [facility], at time _0600 on date _10/26/22 . Planned Procedure Time: 07 . Time changes happen often and if your time is changed the preop area will call you the afternoon before. - You and your visitor will be asked to self-screen and do not enter if you have any COVID symptoms. - Only one visitor is requested with a max of two and NO children visitors are allowed at this time. - The patient visitor may be requested to leave or wait in car when not with patient due to distancing restrictions. - A mask is optional within the hospital at this time. Patients may have clear liquids (water, carbonated beverages, clear teas, apple juice) until 3 hours prior to surgery with a maximum of 20 ounces. - No food from midnight until time of surgery - Infants may have breast milk until 4 hours before surgery, infant formula 6 hours prior to surgery. - Children will be allowed to drink immediately following surgery. If applicable, please bring a bottle or sippy cup to assist with drinking. Juice, water, soda, and popsicles are readily available. For infants on formula, please bring formula the day of surgery. Pacifiers are allowed. Take the following medications with a SIP of water the morning of surgery: ___INHALER ,GABAPENTIN, HYDROCODONE IF NEEDED FOR PAIN DO NOT STOP ANY OF YOUR OTHER PRESCRIPTION MEDICATIONS PRIOR TO SURGERY ?EXCEPT THE FOLLOWING Medications to discontinue per physician __PT STATES HOLD ASPIRIN 7 DAYS PRE OP PER DR PARISI. LAST DOSE 10/18/22. ALL VITAMINS 3 DAYS PRE OP . LAST DOSE 10/22/22 Please no make-up, nail lao, hairspray, perfume, deodorant, or body powder the day of surgery. No jewelry (including any body piercings) or valuables the day of surgery, leave them at home. Please take a shower or bath the night before, or the morning of, surgery with an antibacterial soap. Wear comfortable, loose fitting clothing. Children are encouraged to wear pajamas. - Jewelry must be removed prior to entering the operating room. Rings and piercings that are not removed may be cut off. - The hospital will not accept responsibility for valuables. - Please leave all valuables, including medications, at home the day of surgery. If you are going home after surgery, a licensed trailer truck driver must drive you home. - NO public transportation without another adult if you receive anesthesia. - We recommend that an adult stay with you for 24 hours following discharge. - We also recommend that you do not drive, make important decision, drink alcoholic beverages, or take any drugs that were not prescribed by your health care provider for at least 24 hours after your discharge time. Follow any additional instructions given to you from your surgeon. If you or anyone in your household have experienced Covid symptoms in the past week, please notify your surgeon or the nurse liaison at the phone number below for possible testing. Telephone instructions given to ___PATIENT and asked if any additional questions and then verbalized understanding. Patient advised to call surgeon office or pre surgery nurse liaison [phone] if any additional questions.
[2022-10-18 09:48] VITALS: BMI 34.8
[2022-10-26] VITALS (8 sets, daily range): BP systolic 90–129; BP diastolic 49–67; PULSE 53–71; RESP 12–18; TEMP 36.1–36.8; O2SAT 95–99; BMI 36.0
--- NOTE | ~2022-10-26 | XR_ITS ---
Pain management procedure TECHNIQUE: Fluoroscopy used during L4-5 microdiscectomy performed by [Ingris Ramirez MD] on . Fluoroscopy time is 4 seconds with 2 fluoroscopic images captured. FINDINGS: Correlate with procedure note. IMPRESSION: Fluoroscopy used during L4-5 microdiscectomy. Reviewed, dictated and finalized at location A. TRUCTION FLAGGER
[2022-10-26] MEDS: LACTATED RINGERS 1,000 ML 30 ML IV CONT ×2 (06:40→10:18)
--- NOTE | 2022-10-26 06:52 | WPDANESEPPF ---
Anes - Initial Pre Proc Eval Procedure: Operation Date: 10/26/22 07:30 Proposed Procedures p Right L4-5 Microdiscectomy Lumbar - Ingris Ramirez MD Date/Time: 10/26/22 06:52 Surgeon: Ingris Ramirez MD Pre Op Diagnosis: lumbar disc herniation with radiculopathy Patient Data Age: 67 Gender: M Height: 1.8 m Weight: 117.2 kg Last Vital Signs Temp 36.8 C 10/26/22 06:15 Pulse 71 10/26/22 06:15 Resp 16 10/26/22 06:15 BP 129/63 10/26/22 06:15 Pulse Ox 96 10/26/22 06:15 O2 Del Method Room Air 10/26/22 06:15 Allergies Allergy/AdvReac Type Severity Reaction Status Date / Time oxycodone Allergy Intermediate Itching Verified 10/26/22 06:27 Penicillins Allergy Mild RASH Verified 10/26/22 06:27 Home Medications Medication Instructions Recorded Confirmed Type aspirin 81 mg tablet,delayed 81 mg PO TID 07/05/19 10/18/22 History release (Adult Low Dose Aspirin) lisinopril 20 See Rx Instructions .Route 03/17/21 10/18/22 Rx mg-hydrochlorothiazide 25 mg tablet .COMPLEX #90 tabs albuterol sulfate 90 mcg/actuation See Rx Instructions .Route 07/20/21 10/18/22 Rx aerosol inhaler .COMPLEX ##8.5 testosterone 30 mg/actuation (1.5 2 pump topical DAILY #90 mL 02/28/22 10/18/22 Rx mL) transderm solution metered pump ropinirole 0.5 mg tablet 0.5 mg PO DAILY #90 tabs 05/12/22 10/18/22 Rx azathioprine 50 mg tablet 50 mg PO TID 05/28/22 10/18/22 History balsalazide 750 mg capsule 750 mg PO DAILY 05/28/22 10/18/22 History tamsulosin 0.4 mg capsule (Flomax) 0.4 mg PO DAILY #90 caps 06/03/22 10/18/22 Rx clemastine 2.68 mg tablet See Rx Instructions .Route 06/13/22 10/18/22 Rx .COMPLEX #180 tabs cyclobenzaprine 10 mg tablet 10 mg PO TID PRN muscle spasm #30 07/06/22 10/18/22 Rx tabs fluticasone propionate 110 1 puff inhalation Q12H #12 grams 07/11/22 10/18/22 Rx mcg/actuation HFA aerosol inhaler (Flovent HFA) pantoprazole 40 mg tablet,delayed 40 mg PO QAM #90 tabs 08/03/22 10/18/22 Rx release gabapentin 300 mg capsule 300 mg PO TID #90 caps 09/06/22 10/18/22 Rx (Neurontin) hydrocodone 7.5 mg-acetaminophen 1 tablet PO Q6H PRN pain #110 tabs 10/13/22 10/18/22 Rx 325 mg tablet multivitamin 1 tablet PO DAILY 10/18/22 10/18/22 History nystatin 100,000 unit/mL oral 400,000 unit (4 mL) PO QID #200 mL 10/20/22 10/20/22 Rx suspension montelukast 10 mg tablet 10 mg PO DAILY #90 tabs 10/24/22 Rx Patient hx anesthesia problems: none Family hx anesthesia problems: none Results Review: All pre-operative results and documents have been reviewed as part of the pre-operative evaluation. [facility] Past Medical History Medical History Back pain BPH w/o urinary obs/LUTS Essential hypertension Heartburn Hemorrhoids History of basal cell carcinoma (BCC) of skin Impaired glucose tolerance Obesity LENKA (obstructive sleep apnea) Pulmonary embolism, bilateral Rectal hemorrhage due to ulcerative colitis Superficial thrombophlebitis of left upper extremity Ulcerative colitis with complication Umbilical hernia Uncomplicated asthma Ventral hernia without obstruction or gangrene Surgical History Surgical History History of lumbar surgery Presence of right artificial knee joint Family History Family History Sibling Patient's sister is in good health Patient's brother is in good health Father Family history of dementia Patient's father is Family history of arthritis Mother Patient's mother is Family history of arthritis Social History Social History Smoking status: Never smoker Second hand tobacco smoke exposure: No Alcohol intake: never Substance use: never Substance use type: does not use Lack of Transportation: No Lack of Food: So
--- NOTE | 2022-10-26 07:11 | WPDHPUPDATE1 ---
History and Physical Update Update Date/Time: 10/26/22 07:11 History and Physical has been reviewed, including an updated exam of the patient. There are NO changes in the patient's condition. Risks, benefits, and alternatives have been discussed and questions answered. Patient agrees to proceed with procedure.
[2022-10-26] MEDS: ceFAZolin 2 GM/D5W 50 ML 2 GM/50 ML BAG IVPB (07:26)
[2022-10-26] MEDS: BUPIVACAINE/EPINEPHRINE 0.5% 10 ML VIAL 30 ML INFILTRATE (08:13)
--- NOTE | 2022-10-26 10:42 | W.PM.PROC2 ---
Procedure Note - Detailed Date of Procedure 10/26/22 Pre-op Diagnosis lumbar disc herniation with radiculopathy Post-op Diagnosis Same Procedure Performed Right L4-5 hemilaminectomy, foraminotomy, and medial facetectomy Use of microscope for microsurgical dissection Use of C-arm for fluoroscopy Surgeon Ingris Ramirez MD Forest[employer] Extension Specialist SONAL [place] Anesthesia General Indications Mr. Renae is a 67-year-old male with history of a right L5 radiculopathy which was been resistant to physical therapy, epidural steroid injections, and medical management. Imaging revealed right-sided lateral recess stenosis at L4-5. Surgical intervention in the form of right L4-5 hemilaminectomy, possible diskectomy were recommended. Risks including pain, infection, bleeding, CSF leak, nerve damage, failure to relieve symptoms were discussed. The patient provided written informed consent to proceed. Description of Procedure Patient was brought into the operating room where general anesthesia was induced. The patient was turned prone onto the operating team onto the Jey frame. Pressure points well padded. The C-arm was brought in to assist with visualization of the incision. The incision was marked. The surgical field was performed the restroom sterile fashion. Time-out was performed, and local anesthetic was injected in planned incision Incision was made with a 10 blade scalpel. Soft tissue was dissected to the spinous process with Bovie. Self-retaining retractors placed. The muscles retracted away from the lamina Bovie. Then an up-angled curette was placed under the right L4 lamina, at which time the C-arm was brought in to confirm the appropriate level. The Gould retractor was placed. The microscope was draped and brought into the field for microsurgical dissection. High-speed drill was used to remove lamina on the right side. It was recognized during this exposure that about half of the medial facet was removed as well to a depth anterior to the spinal canal. In order to better identify the structures, the incision was lengthened, and the spinous process was exposed in the midline. The L4 spinous process removed with a Leksell and Kerrison rongeurs. Ligamentum flavum was identified and elevated with up-angled curette as well as Kerrison measures. The dura and proximal nerve root were well exposed. Anterior to the dura, the spinal canal was evaluated with a Mitchell and up-angled curette. Small disc bulge was present; however no large disc herniation was noted, and the nerve was felt to be well decompressed, and so no diskectomy was performed. A Wharton was used to follow the nerve root into the foramen which felt well decompressed. The surgical site was copiously irrigated. Hemostasis was achieved with Surgiflo and the bipolar. Fascia was closed with Vicryl. The surgical field was again copiously. 2-0 Vicryl and 3-0 Vicryl was used to close the dermis and deep dermis. The skin was closed with subcuticular running 4-0 Monocryl. Dermabond was placed over the incision. Patient was returned supine to the stretcher, extubated, and transferred to the PACU without incident. Billing codes: 15179, 96860 Implants None Estimated Blood Loss 100 Drains No Packing No Pathology None sent Complications No immediate complications Condition Stable Disposition PACU [facility] Billing Surgery - Charge Forward: Surgery Billing
== END 2022-10-26 12:30 | disposition home or self-care (01) ==
PROVIDERS: PCP Internal Medicine; Visit Provider Neurological Surgery
PROC: (CPT 63030; principal; 2022-10-26 07:30)
DX: M51.16 Intervertebral disc disorders with radiculopathy, lumbar region (principal); I10 Essential (primary) hypertension; G47.33 Obstructive sleep apnea (adult) (pediatric); N40.0 Benign prostatic hyperplasia without lower urinary tract symptoms; Z86.711 Personal history of pulmonary embolism; J45.909 Unspecified asthma, uncomplicated; E66.9 Obesity, unspecified; Z68.36 Body mass index [BMI] 36.0-36.9, adult; Z79.82 Long term (current) use of aspirin; Z79.51 Long term (current) use of inhaled steroids; Z79.890 Hormone replacement therapy; Z79.891 Long term (current) use of opiate analgesic
CPT/HCPCS: 63030; 36415; 80053; 85027; 85610; 85730; 86850; 86900; 86901; 93005; 99199; J0690; J1100; J2405; J2704; J2710; J3010; J7120

== ENCOUNTER 2022-11-15 14:36 | Outpatient (CLI) | payer OTHER, SELFPAY ==
--- NOTE | 2022-12-08 20:07 | WPDSLEEPSTUD ---
Sleep Study Date of Study: 11/15/22 Ordering Provider: Josh Sanders MD Interpreting Physician: Juju Lozoya MD Sleep Study Type: CPAP Titration Height: 1.8 m Weight: 115.666 kg Body Mass Index: 35.5 Neck Circumference (inches): 17.5 [place]: 2 Reason for Sleep Study Has obstructive sleep apnea, now using CPAP 9 cm with a Salazar and Paykel Simplus mask. He has gained weight, wakes with a dry mouth, gasps for air at night. He is snoring with his mask on; he presents for re-titration. Sleep History Adam Renae is a [id number] with Obstructive sleep apnea currently on 9 cm water pressure. This is not effective. His weight has increased and his AHI is trending upward. He is sent for a repeat CPAP titration to look for an optimal pressure. He occasionally awakens at night feeling short of breath and occasionally awakens with heartburn, belching or coughing. He frequently snores very loudly. He occasionally has trouble sleeping with a cold. Does not wake up gasping for breath at night while he is wearing CPAP. he occasionally sweats excessively at night. He rarely notices his heart pounding or beating irregularly at night. He rarely falls asleep during the day, never involuntarily or while driving. He does not loss of muscle tone with strong emotion. Does not have daytime difficulties due to excessive daytime sleepiness. he does not feel paralyzed on waking or falling asleep. He does not have vivid dreamlike scenes on waking or falling asleep. He does not feel afraid to go to sleep. He does not have nightmares. He frequently remembers his dreams. He occasionally has racing thoughts he has too much caffeine. He does not feel sad, depressed or anxious. He does not have muscular tension. He occasionally notices parts of his body jerking. He frequently kicks at night. He does not have crawling or aching feelings in his legs or any kind of leg pain at night. He does not have morning jaw pain. He does not grind his teeth during sleep. He frequently is bothered by pain during the day and awakened by pain at night. He frequently wakes up feeling stiff in the morning. He occasionally wakes up with sore achy muscles or pain in the neck and spine. Normal bedtime is 9:00 p.m., and he is able to fall asleep within 15 minutes. He wakes 3-6 times during the night moving around in the bed. He repositioned, goes to the bathroom and returns to sleep. His normal wake time is between 8 and 9:00 a.m.. He estimates getting between 8 and 9 hours of sleep at night. He does not generally take naps. He feels better in the evening compared to other times of day. Habits: He never smoked tobacco. Caffeine 1 serving a day. No alcohol or recreational substances. [facility] Past Medical History Medical History Back pain BPH w/o urinary obs/LUTS Essential hypertension Heartburn Hemorrhoids History of basal cell carcinoma (BCC) of skin Impaired glucose tolerance Obesity LENKA (obstructive sleep apnea) Pulmonary embolism, bilateral Rectal hemorrhage due to ulcerative colitis Superficial thrombophlebitis of left upper extremity Ulcerative colitis with complication Umbilical hernia Uncomplicated asthma Ventral hernia without obstruction or gangrene Surgical History Surgical History History of lumbar surgery Presence of right artificial knee joint Family History Family History Sibling Patient's sister is in good health Patient's brother is in good health Father Family history of dementia Patient's father is Family history of arthritis Mother Patient's mother is Family history of arthritis Social History Social History Smoking status: Never smoker Second hand tobacco smoke exposure: No Alcoho
[2022-12-08 21:43] VITALS: BMI 35.5
== END 2022-11-16 06:44 | disposition home or self-care (01) ==
LOC: ANHCSM 14:41
PROVIDERS: PCP Internal Medicine; Visit Provider Internal Medicine Pulmonary Disease
DX: G47.33 Obstructive sleep apnea (adult) (pediatric) (principal); I10 Essential (primary) hypertension
CPT/HCPCS: 95811

== ENCOUNTER 2023-01-07 12:56 | Emergency (ER) | payer OTHER, SELFPAY ==
[2023-01-07 13:30] VITALS: BP 135/77; PULSE 68; RESP 20; TEMP 37.3; O2SAT 98
--- NOTE | 2023-01-07 13:31 | ED.SKABFB ---
HPI - Skin/Abscess/Foreign Bdy General Chief complaint: Skin/Abscess/Foreign Body Stated complaint: Left Hand Thumb Pain Time Seen by Provider: 01/07/23 13:32 Source: patient, RN notes reviewed and old records reviewed Mode of arrival: ambulatory Limitations: no limitations History of Present Illness HPI narrative: 67-year-old male presents to the [facility] with concerns of an unhealing wound for couple of days to the outer aspect of the left thumbnail. Patient states that he pulled a piece of something out. Has been applying Pred, using alcohol and peroxide to it. 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 States that it has been draining some clear fluid. Concern for a foreign body and infection. Onset (ago): day(s) (3-4) Related Data Home Medications Medication Instructions Recorded Confirmed azathioprine 50 mg tablet 50 mg PO TID 05/28/22 01/07/23 balsalazide 750 mg capsule 750 mg PO DAILY 05/28/22 01/07/23 multivitamin 1 tablet PO DAILY 10/18/22 01/07/23 aspirin 81 mg tablet,delayed 81 mg PO DAILY 11/17/22 01/07/23 release (Adult Low Dose Aspirin) vitamin B complex (B 1 tablet PO DAILY 11/17/22 01/07/23 Complex-Vitamin B12 tablet) vitamin E (dl, acetate) 180 mg 180 mg PO DAILY 11/17/22 01/07/23 (400 unit) capsule Allergies Allergy/AdvReac Type Severity Reaction Status Date / Time oxycodone Allergy Intermediate Itching Verified 01/07/23 13:20 Penicillins Allergy Mild RASH Verified 01/07/23 13:20 Review of Systems Review of Systems: All systems reviewed & are unremarkable except as noted in HPI and below Constitutional: Constitutional: Reports no additional constitutional complaints Eyes: Eyes: Reports no additional eye complaints ENT: Reports system reviewed and no additional complaints, except as documented Cardiovascular: Cardiovascular: Reports no additional cardiovascular complaints, Denies chest pain and Denies dyspnea Respiratory: Respiratory: Reports no additional respiratory complaints, Denies chest congestion, Denies cough and Denies dyspnea Gastrointestinal: Gastrointestinal: Reports no additional gastrointestinal complaints, Denies abdominal pain, Denies nausea and Denies vomiting Musculoskeletal: Musculoskeletal: Reports no additional musculoskeletal complaints Integumentary/Breasts: Skin/Breast: Reports as per HPI Neurologic: Reports system reviewed and no additional complaints, except as documented Psychiatric: Psychiatric: Reports no additional psychiatric complaints Allergic/Immunologic: Allergic/Immunologic: Reports no additional allergic/immunologic complaints [facility] Past Medical History Medical History Back pain BPH w/o urinary obs/LUTS Essential hypertension Heartburn Hemorrhoids History of basal cell carcinoma (BCC) of skin Impaired glucose tolerance Obesity LENKA (obstructive sleep apnea) Pulmonary embolism, bilateral Rectal hemorrhage due to ulcerative colitis Superficial thrombophlebitis of left upper extremity Ulcerative colitis with complication Umbilical hernia Uncomplicated asthma Ventral hernia without obstruction or gangrene Surgical History Surgical History History of lumbar surgery Presence of right artificial knee joint Family History Family History Sibling Patient's sister is in good health Patient's brother is in good health Father Family history of dementia Patient's father is Family history of arthritis Mother Patient's mother is Family history of arthritis Social History Social History Smoking status: Never smoker Second hand tobacco smoke exposure: No Alcohol intake: never Substance use: never Substance use type: does not use Lack of Transportation: No Lack of Food: Sometimes True Current [place]
== END 2023-01-07 13:55 | disposition home or self-care (01) ==
PROVIDERS: Emergency Provider Nurse Practitioner; PCP Radiology Diagnostic Radiology
DX: L03.012 Cellulitis of left finger (principal); N40.0 Benign prostatic hyperplasia without lower urinary tract symptoms; R73.02 Impaired glucose tolerance (oral); Z86.711 Personal history of pulmonary embolism; Z86.718 Personal history of other venous thrombosis and embolism; J45.909 Unspecified asthma, uncomplicated; Z85.828 Personal history of other malignant neoplasm of skin
CPT/HCPCS: 99213; G0463

== ENCOUNTER 2023-03-15 14:21 | Outpatient (CLI) | payer OTHER, SELFPAY ==
--- NOTE | ~2023-03-15 | XR_ITS ---
XR hip LT min 3V w AP pelvis DATE: 03/15/2023 14:49 INDICATION: Left hip pain for one month. No injury. TECHNIQUE: AP pelvis. AP, lateral and crosstable lateral views of left hip COMPARISON: None FINDINGS: No fracture or dislocation, avascular necrosis or bone destruction of the left hip is detec rosi. Left hip joint space appears relatively well preserved and symmetric with the right. The pubic symphysis and sacroiliac joints are intact. Multilevel prominent degenerative disc disease of the lumbar spine. IMPRESSION: Multilevel prominent degenerative disc disease of the lumbar spine No significant abnormality of the left hip Reviewed, dictated and finalized at location A.
== END 2023-03-15 14:22 | disposition home or self-care (01) ==
PROVIDERS: PCP Family Medicine; Visit Provider Family Medicine
DX: M25.552 Pain in left hip (principal); M51.36 Other intervertebral disc degeneration, lumbar region
CPT/HCPCS: 73502

== ENCOUNTER → 2023-04-25 13:51 | Outpatient (CLI) | payer OTHER, SELFPAY ==
--- NOTE | ~2023-04-25 | US_ITS ---
EXAMINATION: US renal BI DATE: 04/25/2023 14:36 INDICATION: Nephrolithiasis TECHNIQUE: Multiple ultrasound grayscale images of the kidneys were obtained. COMPARISON: CT abdomen and pelvis dated 01/08/2018 FINDINGS: The right kidney measures 11.9 x 6.1 x 5.5 cm. The left kidney measures 12.7 x 6.5 x 5.6 cm. The kidn eys demonstrate normal echogenicity. Mild dilation of the left renal pelvis without jocelyn hydronephro sis. There is no hydronephrosis in either kidney. No stones identified. The bladder is normal. IMPRESSION: 1. Mild dilation of the left renal pelvis without jocelyn hydronephrosis. Normal right kidney. Reviewed, dictated and finalized at location A.
== END ==
DX: N20.0 Calculus of kidney (principal); N28.89 Other specified disorders of kidney and ureter
CPT/HCPCS: 76775

== ENCOUNTER 2023-04-26 14:30 | Outpatient (RCR) | payer OTHER, SELFPAY ==
--- NOTE | 2023-03-30 14:24 | OPREHPOC ---
Outpatient Therapy Plan of Care This is a Multidisciplinary Plan of Care that may contain components documented by all disciplines (PT, OT, and ST.) PT Problem 1 PT Problem #1 Knowledge Deficit PT Goal 1 Goal Indpendent with HEP Target Visit 8 PT Problem 2 PT Problem #2 Pain PT Goal 1 Goal decreased pain to no more than 1/10 after long walks Target Visit 8 PT Problem 3 PT Problem #3 Impaired Strength PT Goal 1 Goal L hip grossly 4+/5 Target Visit 8
--- NOTE | 2023-03-30 14:24 | PTOPEVAL1 ---
Assessment and note entered by Dhruv Matta, PT Evaluation Information Diagnosis L hip pain Subjective Information Patient reports he has been dealing with L hip pain. Received an injection last Monday and it is feeling better. Prior to hip issues had a bad back and had a surgery October of this year and physical therapy Reported Pain Level Pain Score 2: Self Report Additional Pain Score Comments Patient reports he is feeling a lot better since the injection having just a little twinge today he thinks is from the rain. Assessment PT Clinical Summary Adam is a 68 year old male coming into the clinic with a diagnosis of L hip pain. The patient has decreased strength in the L hip compared to R hip, weak core recruitment, along with discomfort along the IT band. The patient will work with physical therapy on strengthening and following an HEP that he can consistently follow. Modalities and manual therapy as needed for pain control. Plan of Care Interventions Electrical Stimulation,Gait Training,Hot Pack/Cold Pack,Manual Therapy,Neuro Re-education,Patient/ Caregiver Education,Therapeutic Activities, Therapeutic Exercise,Ultrasound Other Interventions cupping, taping, IASTM PT Services Indicated Yes Treatment Frequency and 1-2x/wk for 8 visits Duration These treatments will address the objective and functional deficits as defined above. The patient will be advanced safely and appropriately in order for the patient to progress towards his/her prior level of function. Additional exercises will be introduced and as well as a comprehensive home exercise program upon discharge, if needed, ?to ensure carryover of functional gains achieved in the clinic. This treatment plan has been reviewed and agreement upon by the patient.
--- NOTE | 2023-04-26 16:40 | PTOPDC ---
Assessment and note entered by Dhruv Matta, PT Evaluation Information Assessment Status Discharge Diagnosis L hip pain Subjective Information Patient reports it feels good when he is doing closed chain exercises, but when walking a lot will start getting sore and sometimes spread to the other hip also. (When further questioned patient reports hasn't really taken a long walk since he was in [place] with his over the holidays). Patient thinks that going to the gym and starting to get back to walking with his will help get the pain all the way gone. Assessment PT Clinical Summary Adam is a 68 year old male coming into the clinic with a diagnosis of L hip pain. Patient was evaluated on 03/30/23 and has attended 7 visits . Patient has met his strength goals and has a good HEP for at home and at the gym. Patient has not been walking as exercise. Patient still has a slightly antalgic gait pattern, but strength and range of motion are WFL. Recommend going back to doctor if pain increases from more than 1/10 otherwise discharge with HEP and starting a walking program. Plan of Care PT Services Indicated No
== END 2023-04-27 13:13 | disposition home or self-care (01) ==
LOC: ANHPT 14:30
PROVIDERS: PCP Family Medicine; Visit Provider Family Medicine
DX: M25.552 Pain in left hip (principal)
CPT/HCPCS: 97110; 97161; 97530

== ENCOUNTER 2023-05-04 15:13 | Emergency (ER) | payer OTHER, SELFPAY ==
--- NOTE | 2023-05-04 15:14 | ED.URI ---
HPI - URI/Sore Throat General Chief Complaint: Upper Respiratory Infection Stated Complaint: Sore Throat/Sinus Time Seen by Provider: 05/04/23 15:14 Source: patient Mode of arrival: ambulatory Limitations: no limitations History of Present Illness HPI Narrative: Patient is a 68-year-old male who presents with 4 days of sore throat, congestion and cough. States today he felt feverish and symptoms have worsened. Patient denies any headache, ear pain, nausea, vomiting, diarrhea, shortness of breath. Patient has taking Robitussin, zinc, vitamin-D, Flonase and albuterol inhaler. Denies any shortness of breath. Patient demanding to be prescribed Paxlovid since he was on it last year and it made his symptoms resolved within 3 days. Related Data Home Medications Medication Instructions Recorded Confirmed azathioprine 50 mg tablet 50 mg PO TID 05/28/22 05/04/23 multivitamin 1 tablet PO DAILY 10/18/22 05/04/23 aspirin 81 mg tablet,delayed 81 mg PO DAILY 11/17/22 05/04/23 release (Adult Low Dose Aspirin) vitamin B complex (B 1 tablet PO DAILY 11/17/22 05/04/23 Complex-Vitamin B12 tablet) vitamin E (dl, acetate) 180 mg 180 mg PO DAILY 11/17/22 05/04/23 (400 unit) capsule Allergies Allergy/AdvReac Type Severity Reaction Status Date / Time oxycodone Allergy Intermediate Itching Verified 04/20/23 13:36 Penicillins Allergy Mild RASH Verified 04/20/23 13:36 Review of Systems Review of Systems: All systems reviewed & are unremarkable except as noted in HPI and below Constitutional: Constitutional: Denies body ache(s), Denies chills, Denies fatigue, Denies fever(s), Denies headache(s), Denies malaise and Denies weakness Eyes: Eyes: Denies blurry vision, Denies itchy eyes and Denies loss of vision ENT: Denies otalgia, Denies headache(s), Reports nasal congestion, Denies sinus pain and Reports sore throat Cardiovascular: Cardiovascular: Denies chest pain, Denies irregular heart rhythm and Denies dyspnea Respiratory: Respiratory: Reports cough and Denies dyspnea Gastrointestinal: Gastrointestinal: Denies abdominal pain, Denies diarrhea, Denies nausea and Denies vomiting Musculoskeletal: Musculoskeletal: Denies back pain, Denies myalgias and Denies arthralgias Integumentary/Breasts: Skin/Breast: Denies pruritus and Denies rash Neurologic: Denies headache(s), Denies loss of vision and Denies weakness Psychiatric: Psychiatric: Reports no additional psychiatric complaints Endocrine: Endocrine: Denies fatigue Allergic/Immunologic: Allergic/Immunologic: Denies itchy eyes PMFSH Past Medical History Medical History Back pain BPH w/o urinary obs/LUTS Essential hypertension Heartburn Hemorrhoids History of basal cell carcinoma (BCC) of skin Impaired glucose tolerance Obesity LENKA (obstructive sleep apnea) Pulmonary embolism, bilateral Rectal hemorrhage due to ulcerative colitis Superficial thrombophlebitis of left upper extremity Ulcerative colitis with complication Umbilical hernia Uncomplicated asthma Ventral hernia without obstruction or gangrene Surgical History Surgical History History of lumbar surgery Presence of right artificial knee joint Family History Family History Sibling Patient's sister is in good health Patient's brother is in good health Father Family history of dementia Patient's father is Family history of arthritis Mother Patient's mother is Family history of arthritis Social History Social History Smoking status: Never smoker Second hand tobacco smoke exposure: No Alcohol intake: never Substance use: never Substance use type: does not use Lack of Transportation: No Current Housing: Decline to Answer Concerned About [facility]
[2023-05-04 15:24] VITALS: BP 125/52; PULSE 76; RESP 18; TEMP 37.6; O2SAT 96
== END 2023-05-04 16:06 | disposition home or self-care (01) ==
PROVIDERS: Emergency Provider Nurse Practitioner Family; PCP Family Medicine
DX: U07.1 COVID-19 (principal); I10 Essential (primary) hypertension; R12 Heartburn; E66.9 Obesity, unspecified; Z68.32 Body mass index [BMI] 32.0-32.9, adult; Z86.711 Personal history of pulmonary embolism; Z86.718 Personal history of other venous thrombosis and embolism; J45.909 Unspecified asthma, uncomplicated; N40.0 Benign prostatic hyperplasia without lower urinary tract symptoms; Z85.828 Personal history of other malignant neoplasm of skin; Z79.82 Long term (current) use of aspirin
CPT/HCPCS: 87426; 99213; C9803; G0463

== ENCOUNTER 2023-10-24 11:18 | Outpatient (CLI) | payer OTHER, SELFPAY ==
--- NOTE | ~2023-10-24 | XR_ITS ---
XR thoracic spine 2V DATE: 10/24/2023 13:02 INDICATION: Thoracic back pain. No injury. TECHNIQUE: AP, lateral and swimmer views COMPARISON: None FINDINGS: Moderately severe degenerative disease and mild retrolisthesis at C3-4, C4-5, C5-6. Severe degenerative disease at C6-7. There is dextroscoliosis of the thoracolumbar spine. Diffuse idiopathic skeletal hyperostosis of the thoracic or lumbar spine. The thoracic pedicles appear intact. No thoracic spine fracture or bone destruction is evident. No pa raspinal soft tissue thickening is noted. C3 IMPRESSION: Multilevel moderately severe to severe degenerative disease of the cervical spine with as sociated mild retrolisthesis at C3-4 and C4-5 and C5-6 Thoracolumbar dextroscoliosis Diffuse idiopathic skeletal hyperostosis of the thoracolumbar spine Reviewed, dictated and finalized at location L. TELEPHONE TRIAGE IMPRESSION: Multilevel moderately severe to severe degenerative disease of the cervical spine with associated mild retrolisthesis at C3-4 and C4-5 and C5-6 Thoracolumbar dextroscoliosis Diffuse idiopathic skeletal hyperostosis of the thoracolumbar spine
== END 2023-10-24 11:19 | disposition home or self-care (01) ==
PROVIDERS: PCP Family Medicine; Visit Provider Neurological Surgery
DX: M54.6 Pain in thoracic spine (principal); M50.31 Other cervical disc degeneration, high cervical region; M41.82 Other forms of scoliosis, cervical region; M48.15 Ankylosing hyperostosis [Forestier], thoracolumbar region
CPT/HCPCS: 72070

== ENCOUNTER 2023-12-11 13:33 | Outpatient (CLI) | payer OTHER, SELFPAY ==
--- NOTE | ~2023-12-11 | XR_ITS ---
XR lumbar spine 2-3V DATE: 12/11/2023 14:13 INDICATION: Back pain TECHNIQUE: AP, lateral, coned lateral lumbosacral views COMPARISON: None FINDINGS: There is prominent degenerative spurring in the lower thoracic spine. There is mild lumbar levoscoliosis. There is moderately severe degenerative disc disease at L3-4 and severe degenerative disc disease at the remaining lumbosacral interspaces. The included lower thoracic and lumbar pedicles are intact. No fracture or bone destruction is eviden t. Slight anterolisthesis at L2-3. There is degenerative change at the apophyseal joints. No spondylolis thesis is noted otherwise. The sacroiliac joints are intact. IMPRESSION: Mild lumbar levoscoliosis Severe degenerative disc disease Reviewed, dictated and finalized at location B.
== END 2023-12-11 13:34 | disposition home or self-care (01) ==
LOC: ANHIMG 13:34
PROVIDERS: PCP Family Medicine; Visit Provider Family Medicine
DX: M54.50 Low back pain, unspecified (principal); M41.86 Other forms of scoliosis, lumbar region; M51.36 Other intervertebral disc degeneration, lumbar region
CPT/HCPCS: 72100

== ENCOUNTER 2024-03-20 10:19 | Outpatient (CLI) | payer OTHER, SELFPAY ==
--- NOTE | ~2024-03-20 | MR_ITS ---
MRI of the cervical spine Clinical History: Pain Technique: Axial T2-weighted and gradient images, and sagittal T1-weighted, T2-weighted, and STIR alva ges were acquired. Findings: There is no fracture or subluxation of cervical spine. Vertebral bodies maintain normal hei ght. No suspicious bone marrow signal abnormality seen. At C2-C3, there is minimal disc bulge and minimal facet arthropathy. No central canal stenosis, cord compression, or neural foraminal narrowing. At C3-C4, there is moderate to advanced degenerative disc narrowing. There is disc osteophyte complex with mild canal stenosis and mild cord compression. There is bilateral neural foraminal narrowing wi th mild facet arthropathy. At C4-C5, there is moderate degenerative disc narrowing. There is disc osteophyte complex resulting i n moderate canal stenosis and associated cord compression. There is bilateral neural foraminal narrow ing with mild bilateral facet arthropathy. At C5-C6, there is moderate degenerative disc narrowing. There is disc osteophyte complex with mild c anal stenosis stenosis and mild cord compression. There is severe bilateral neural foraminal narrowin g. At C6-C7, there is disc osteophyte complex with mild canal stenosis but no jocelyn cord compression. Th ere is bilateral neural foraminal narrowing. No abnormal signal seen in the spinal cord. Paravertebral soft tissues are unremarkable. Impression: Moderate to advanced degenerative spondylosis, as detailed above, especially from C3 through C6. Reviewed, dictated and finalized at [facility]. Impression: Moderate to advanced degenerative spondylosis, as detailed above, especially fr om C3 through C6.
--- NOTE | ~2024-03-20 | MR_ITS ---
MRI of the thoracic spine Clinical History: Pain Technique: Axial T2-weighted and gradient images, and sagittal T1-weighted, T2-weighted, and STIR alva ges were acquired. Findings: There is no fracture or subluxation of the thoracic spine. Vertebral bodies maintain normal height and line. No suspicious bone marrow signal abnormality seen. Multiple Schmorl's nodes are pre sent at the lower thoracic spine. There is moderate to advanced degenerative disc change throughout t he lower half of the thoracic spine. There is also advanced degenerative change at T2-T3. There is sc attered facet arthropathy throughout the thoracic spine, especially the lower half, no jocelyn spinal c anal stenosis or cord compression identified in the thoracic spine. There is advanced bilateral neura l foraminal narrowing at T10-T11. There is advanced left neural foraminal narrowing at T9-T10. No abnormal signal seen in the spinal cord. Paravertebral soft tissues are unremarkable. Impression: [id number] degenerative spondylosis of the thoracic spine, as detailed above. No acute fracture or subluxation. Reviewed, dictated and finalized at location M. Impression: [id number] degenerative spondylosis of the thoracic spine, as detailed ab ove. No acute fracture or subluxation.
== END 2024-03-20 10:20 ==
LOC: MICIMG 10:20
PROVIDERS: PCP Family Medicine; Visit Provider Family Medicine
DX: M47.894 Other spondylosis, thoracic region (principal); M47.892 Other spondylosis, cervical region
CPT/HCPCS: 72141; 72146

== ENCOUNTER 2024-04-01 08:54 | Outpatient (CLI) | payer OTHER, SELFPAY ==
--- NOTE | ~2024-04-01 | CT_ITS ---
CT lumbar spine wo con Ordering provider: Liv Khanna History: 69 years Male with . Chronic midline low back pain . Comparison: None. Technique: CT lumbar spine without contrast. Automated exposure control and iterative reconstruction technique were employed. The dose-length product was 958.90 mGy-cm. FINDINGS: VERTEBRAE: Normal height and alignment. No subluxation or visible acute fracture. Levoscoliosis. DISC SPACES: Narrowing of all the disc spaces is noted with degenerative changes. Multilevel facet jason int disease. T12-L1: No stenosis. Diffuse disc bulge with osteophyte formation. L1-L2: No stenosis. Mild diffuse disc bulge. L2-L3: No stenosis. Disc bulge with osteophyte formation. L3-L4: Mild spinal canal stenosis secondary to broad based disc bulge, facet arthropathy, and ligamen justa flavum hypertrophy. Osteophyte formation. L4-L5: No stenosis. Osteophyte formation. L5-S1: No stenosis. osteophyte formation. PARASPINOUS SOFT TISSUES: Mild atheromatous disease of the abdominal aorta. Fusion is seen in the right sacroiliac joint. IMPRESSION: No acute osseous abnormality. Multilevel degenerative disc disease. Reviewed, dictated and finalized at location A.
== END 2024-04-01 08:55 ==
LOC: MICIMG 08:56
PROVIDERS: PCP Family Medicine
DX: M51.36 Other intervertebral disc degeneration, lumbar region (principal); G89.29 Other chronic pain
CPT/HCPCS: 72131

== ENCOUNTER 2024-07-25 00:46 | Day surgery (SDC) | payer OTHER, SELFPAY ==
[2024-07-16 09:20] VITALS: BMI 29.6
--- NOTE | 2024-07-16 09:36 | PC.NURSE ---
PAT call done for colonoscopy scheduled for July 25. Pt refused to do medication reconciliation, states it should all be in his chart. let him know current list may not be updated, instructed pt to bring in list of his meds when coming in for procedure. pt denies any blood thinners.
[2024-07-25 07:52] VITALS: BP 122/71; PULSE 64; RESP 16; TEMP 36.1; O2SAT 95; BMI 29.8
[2024-07-25] MEDS: LACTATED RINGERS 1,000 ML 150 ML IV CONT (08:11)
--- NOTE | 2024-07-25 08:43 | WPDANESEPPF ---
Anes - Initial Pre Proc Eval Procedure: Operation Date: 07/25/24 09:00 Proposed Procedures p Colonoscopy - Dmitry Cruz MD Date/Time: 07/25/24 08:43 Surgeon: Dmitry Cruz MD Pre Op Diagnosis: ulcerative colitis Patient Data Age: 69 Gender: M Height: 1.8 m Weight: 97.1 kg Last Vital Signs Temp 36.1 C L 07/25/24 07:52 Pulse 64 07/25/24 07:52 Resp 16 07/25/24 07:52 BP 122/71 07/25/24 07:52 Pulse Ox 95 07/25/24 07:52 O2 Del Method Room Air 07/25/24 07:52 Allergies Allergy/AdvReac Type Severity Reaction Status Date / Time oxycodone Allergy Intermediate Itching Verified 07/25/24 07:51 Penicillins Allergy Mild RASH Verified 07/25/24 07:51 Home Medications Medication Instructions Recorded Confirmed Type multivitamin 1 tablet PO DAILY 10/18/22 07/25/24 History vitamin B complex (B 1 tablet PO DAILY 11/17/22 07/25/24 History Complex-Vitamin B12 tablet) vitamin E (dl, acetate) 180 mg 180 mg PO DAILY 11/17/22 07/25/24 History (400 unit) capsule albuterol sulfate 90 mcg/actuation See Rx Instructions .Route 12/15/22 07/25/24 Rx aerosol inhaler .COMPLEX ##8.5 cyclobenzaprine 10 mg tablet 10 mg PO TID PRN muscle spasm #90 03/15/23 07/25/24 Rx tabs desoximetasone 0.25 % topical cream 1 applic topical DAILY PRN skin 05/25/23 07/25/24 Rx irritation #15 grams aspirin 81 mg tablet,delayed 81 mg PO BID 11/28/23 07/25/24 History release (Adult Low Dose Aspirin) clemastine 2.68 mg tablet See Rx Instructions .Route 12/25/23 07/25/24 Rx .COMPLEX #180 tabs pantoprazole 40 mg tablet,delayed 40 mg PO QAM #90 tabs 01/22/24 07/25/24 Rx release gabapentin 300 mg capsule 300 mg PO TID PRN pain #270 caps 03/25/24 07/25/24 Rx (Neurontin) lisinopril 20 See Rx Instructions .Route 04/19/24 07/25/24 Rx mg-hydrochlorothiazide 25 mg tablet .COMPLEX #90 tabs montelukast 10 mg tablet See Rx Instructions .Route 04/19/24 07/25/24 Rx .COMPLEX #90 tabs azelastine 137 mcg (0.1 %) nasal 1 spray intranasal Q12H #30 mL 04/22/24 07/25/24 Rx spray ropinirole 0.5 mg tablet See Rx Instructions .Route 05/02/24 07/25/24 Rx .COMPLEX #90 tabs tamsulosin 0.4 mg capsule See Rx Instructions .Route 05/24/24 07/25/24 Rx .COMPLEX #90 caps hydrocodone 7.5 mg-acetaminophen 1 tablet PO Q6H PRN pain #120 tabs 07/24/24 07/25/24 Rx 325 mg tablet testosterone 30 mg/actuation (1.5 2 pump topical DAILY #90 mL 07/24/24 07/25/24 Rx mL) transderm solution metered pump Patient hx anesthesia problems: none Family hx anesthesia problems: none Results Review: All pre-operative results and documents have been reviewed as part of the pre-operative evaluation. [facility] Past Medical History Medical History Back pain BPH w/o urinary obs/LUTS Essential hypertension Heartburn Hemorrhoids History of basal cell carcinoma (BCC) of skin Impaired glucose tolerance Obesity LENKA (obstructive sleep apnea) Pulmonary embolism, bilateral Rectal hemorrhage due to ulcerative colitis Superficial thrombophlebitis of left upper extremity Ulcerative colitis with complication Umbilical hernia Uncomplicated asthma Ventral hernia without obstruction or gangrene Surgical History Surgical History History of lumbar surgery Presence of right artificial knee joint Family History Family History Sibling Patient's sister is in good health Patient's brother is in good health Father Family history of dementia Patient's father is Family history of arthritis Mother Patient's mother is Family history of arthritis Social History Social History Smoking status: Never smoker Second hand tobacco smoke exposure: No Alcohol intake: never Substance use: never Substance use type: does not use Do You Feel Safe in your Home?: Yes Lack of Transportation: No Current Housing: Decline to Answer Concerned About Future Housing: Decline to Answer Difficulty Paying Gas/Electric Bills: Decline to Answer Difficulty Paying for Meds: Decline to Answer Currently Unemployed: Decline to Answer Education: Decline to Answer Difficulty w/ Childcare or Family Care: Decline to Answer Living arrangements: with family Occupation/Education: occupation Spiritual care concerns: No Anes - Eval Final PreProcedure Day of Procedure 07/25/24 08:43 Heart: regular rate and rhythm Lungs: normal air movement Airway: Mallampati scale class II Neurological: alert and oriented Last oral intake: >/= 8 hours ASA classification: III Emergent: no Anesthetic plan: proceed Anesthesia type and monitoring: general GIVS and standard monitoring Results Review: All pre-operative results and documents have been reviewed as part of the pre-operative evaluation. Informed Consent: The patient's anesthetic plan and its attendant risks and benefits were discussed with the patient/family/POA. Questions were solicited and answers provided to the satisfaction of the patient/family/POA.
--- NOTE | 2024-07-25 08:48 | PM.HPGS ---
History of Present Illness History of Present Illness Consent: Risks, benefits, and alternatives have been discussed and questions answered. Patient agrees to proceed with procedure. Chief complaint: ulcerative colitis Narrative: Adam Renae is a 69 year old male with left sided ulcerative colitis diagnosed by Dr. Sorenson in 2014. Last colonsocoyp 2 years ago with colitis, recently with flare up and required steroid (he was using imuran and balsalazide). Started on zeposia but only received starting dose but then found out that co-pay will be too high and can not take maintenance dose unless he received support. He noted some improvement. Review of Systems Review of Systems: All systems reviewed & are unremarkable except as noted in HPI and below PMFSH Past Medical History Medical History Back pain BPH w/o urinary obs/LUTS Essential hypertension Heartburn Hemorrhoids History of basal cell carcinoma (BCC) of skin Impaired glucose tolerance Obesity LENKA (obstructive sleep apnea) Pulmonary embolism, bilateral Rectal hemorrhage due to ulcerative colitis Superficial thrombophlebitis of left upper extremity Ulcerative colitis with complication Umbilical hernia Uncomplicated asthma Ventral hernia without obstruction or gangrene Surgical History Surgical History History of lumbar surgery Presence of right artificial knee joint Family History Family History Sibling Patient's sister is in good health Patient's brother is in good health Father Family history of dementia Patient's father is Family history of arthritis Mother Patient's mother is Family history of arthritis Social History Social History Smoking status: Never smoker Second hand tobacco smoke exposure: No Alcohol intake: never Substance use: never Substance use type: does not use Do You Feel Safe in your Home?: Yes Lack of Transportation: No Current Housing: Decline to Answer Concerned About Future Housing: Decline to Answer Difficulty Paying Gas/Electric Bills: Decline to Answer Difficulty Paying for Meds: Decline to Answer Currently Unemployed: Decline to Answer Education: Decline to Answer Difficulty w/ Childcare or Family Care: Decline to Answer Living arrangements: with family Occupation/Education: occupation Spiritual care concerns: No Meds Home Medications and Allergies Home Medications Medication Instructions Recorded Confirmed Type multivitamin 1 tablet PO DAILY 10/18/22 07/25/24 History vitamin B complex (B 1 tablet PO DAILY 11/17/22 07/25/24 History Complex-Vitamin B12 tablet) vitamin E (dl, acetate) 180 mg 180 mg PO DAILY 11/17/22 07/25/24 History (400 unit) capsule albuterol sulfate 90 mcg/actuation See Rx Instructions .Route 12/15/22 07/25/24 Rx aerosol inhaler .COMPLEX ##8.5 cyclobenzaprine 10 mg tablet 10 mg PO TID PRN muscle spasm #90 03/15/23 07/25/24 Rx tabs desoximetasone 0.25 % topical cream 1 applic topical DAILY PRN skin 05/25/23 07/25/24 Rx irritation #15 grams aspirin 81 mg tablet,delayed 81 mg PO BID 11/28/23 07/25/24 History release (Adult Low Dose Aspirin) clemastine 2.68 mg tablet See Rx Instructions .Route 12/25/23 07/25/24 Rx .COMPLEX #180 tabs pantoprazole 40 mg tablet,delayed 40 mg PO QAM #90 tabs 01/22/24 07/25/24 Rx release gabapentin 300 mg capsule 300 mg PO TID PRN pain #270 caps 03/25/24 07/25/24 Rx (Neurontin) lisinopril 20 See Rx Instructions .Route 04/19/24 07/25/24 Rx mg-hydrochlorothiazide 25 mg tablet .COMPLEX #90 tabs montelukast 10 mg tablet See Rx Instructions .Route 04/19/24 07/25/24 Rx .COMPLEX #90 tabs azelastine 137 mcg (0.1 %) nasal 1 spray intranasal Q12H #30 mL 04/22/24 07/25/24 Rx spray ropinirole 0.5 mg tablet See Rx Instructions .Route 05/02/24 07/25/24 Rx .COMPLEX #90 tabs tamsulosin 0.4 mg capsule See Rx Instructions .Route 05/24/24 07/25/24 Rx .COMPLEX #90 caps hydrocodone 7.5 mg-acetaminophen 1 tablet PO Q6H PRN pain #120 tabs 07/24/24 07/25/24 Rx 325 mg tablet testosterone 30 mg/actuation (1.5 2 pump topical DAILY #90 mL 07/24/24 07/25/24 Rx mL) transderm solution metered pump Allergies Allergy/AdvReac Type Severity Reaction Status Date / Time oxycodone Allergy Intermediate Itching Verified 07/25/24 07:51 Penicillins Allergy Mild RASH Verified 07/25/24 07:51 Vital Signs Vital Signs - 24 hr 07/25/24 07:52 Temperature 97 F L Pulse Rate 64 Respiratory Rate 16 Blood Pressure 122/71 Pulse Oximetry 95 Oxygen Delivery Room Air Exam Const: General: comfortable and no acute distress HENMT: Face/Nose/Sinus: Normal nares present Eyes: General: appearance normal, both eyes and all related structures Neck: Neck: no JVD Resp: Auscultation: clear to auscultation bilaterally Cardio: Rate: regular rate Rhythm: regular rhythm GI: Inspection: non-distended GI Palp: Yes Soft to palpation Skin: General skin exam: normal color Neuro: General: gait normal Speech: normal speech Extrem: General: normal to inspection Psych: Mental Status: mental status grossly normal Assessment and Plan Assessment and plan (1) Left sided ulcerative colitis: Code(s): K51.50 - Left sided colitis without complications Status: Acute Assessment and Plan: colonoscopy can not afford zeposia (will try to find ways to support him), he can not get anderson inhibitor (h/o PE) if finally can not continue with zeposia then will need other more affordable biologics (2) Blood in feces: Code(s): K92.1 - Melena Status: Acute (3) Mucus in stool: Code(s): R19.5 - Other fecal abnormalities Status: Acute
[2024-07-25 09:04] VITALS: BP 77/44; PULSE 57; RESP 17; O2SAT 92
[2024-07-25 09:14] VITALS: BP 91/47; PULSE 57; RESP 16; O2SAT 95
[2024-07-25 09:24] VITALS: BP 95/50; PULSE 58; RESP 20; O2SAT 96
== END 2024-07-25 09:30 | disposition home or self-care (01) ==
PROVIDERS: PCP Family Medicine; Referring Provider Nurse Practitioner; Visit Provider Internal Medicine Gastroenterology
PROC: 0DJD8ZZ Inspection of Lower Intestinal Tract, Via Natural or Artificial Opening Endoscopic (ICD-10-PCS; CPT 45378; principal; 2024-07-25 09:00)
DX: K51.90 Ulcerative colitis, unspecified, without complications (principal); K57.30 Diverticulosis of large intestine without perforation or abscess without bleeding; I10 Essential (primary) hypertension; G47.33 Obstructive sleep apnea (adult) (pediatric); N40.0 Benign prostatic hyperplasia without lower urinary tract symptoms; J45.909 Unspecified asthma, uncomplicated; Z86.711 Personal history of pulmonary embolism; E66.9 Obesity, unspecified; Z68.29 Body mass index [BMI] 29.0-29.9, adult; Z79.51 Long term (current) use of inhaled steroids; Z79.82 Long term (current) use of aspirin; Z79.890 Hormone replacement therapy; Z79.891 Long term (current) use of opiate analgesic
CPT/HCPCS: 45380; 88305; J2003; J2704; J7120

== ENCOUNTER 2025-02-27 07:43 | Outpatient (CLI) | payer OTHER, SELFPAY ==
--- OUTSIDE RECORDS SUMMARY | 2025-02-27 07:46 | XMS_ITS | Clinical Summary ---
Author Organization [facility] Address [address] [place] [address] Phone Care Team Providers Care Executive Chairman Of The Board Name Role Phone Antony Doran Primary Care Provider [phone] Allergies Active Allergy Reactions Criticality Noted Date Comments Penicillins Rash Low 04/04/2018 Medications montelukast (SINGULAIR) 10 mg tablet Take 10 mg by mouth daily. Active balsalazide (COLAZAL) 750 mg Capsule Take 2,250 mg by mouth 3 times daily 4 capsules, twice a day. Active azaTHIOprine (IMURAN) 50 mg tablet Take 150 mg by mouth daily 3 pills of 50 mg, daily. Active prednisoLONE 5 mg tablet Take 10 mg by mouth daily. Active HYDROcodone-ari taminophen (NORCO) 7.5-325 mg Tablet Take 1 Tablet by mouth every 6 hours as needed for Pain, Moderate . Active loratadine (CLARITIN) 10 mg tablet Take 10 mg by mouth daily. Active clemastine (TAVIST) 2.68 mg Tablet Take 2.68 mg by mouth 2 times daily as needed for Allergies. Active rivaroxaban (XARELTO) 20 mg Tablet Take 1 Tablet (20 mg) by mouth daily. 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 Gender Identity Not on file Sexual Orientation Not on file Last Filed Vital Signs Vital Sign Reading Time Taken Comments Blood Pressure 142/71 04/08/2018 5:45 AM CDT Pulse 69 04/08/2018 5:45 AM CDT Temperature 36.1 C (97 F) 04/08/2018 5:45 AM CDT Respiratory Rate 16 04/08/2018 5:45 AM CDT Oxygen Saturation 96% 04/08/2018 5:45 AM CDT Inhaled Oxygen Concentration - - Weight 111.1 kg (245 lb) 04/04/2018 2:57 PM CDT Height 180.3 cm (5' 11) 04/04/2018 2:57 PM CDT Body Mass Index 34.17 04/04/2018 2:57 PM CDT Plan of Treatment Health Maintenance Due Date Last Done Comments DTAP/TDAP/TD VACCINES (1 - Tdap) 1973 COLORECTAL SCREENING 1999 Colorectal Cancer Screening 1999 FIT-DNA Q 3 years 1999 FIT/FOBT Q 1 year 1999 Flex Sig/CT Colonography Q 5 years 1999 PNEUMOCOCCAL VACCINE 50+ YEARS (1 of 1 - PCV) 02/01/20 04 ZOSTER VACCINE (1 of 2) 02/01/2004 INFLUENZA VACCINE (#1) 2024 RSV VACCINE (60+ or ) (1 - 1-dose 75+ series) 2029 Insurance RX MEDIMPACT Member Subscriber Plan / Payer (Ef fective for All Dates) Name:Adam Renae Relation to Subscriber:Self Name:Adam Renae Subscriber ID:Not on file Payer ID:Not on file Group ID:[id number] Type:RX Medicare Part D Address: [address] Advance Directives For more information, please contact: [phone] * Full Code (Latest Code Status on File) Date Activated Date Inactivated Comments 04/04/2018 2:29 PM 04/08/2018 4:31 PM Care Teams Executive Chairman Of The Board Relationship Specialty Start Date End Date Antony Doran DO PCP - General Internal Medicine 04/04/18
== END 2025-02-27 07:44 | disposition home or self-care (01) ==
LOC: ANHAUDIO 07:44
PROVIDERS: PCP Family Medicine; Visit Provider Otolaryngology
DX: H90.3 Sensorineural hearing loss, bilateral (principal); H93.13 Tinnitus, bilateral
CPT/HCPCS: 92557; 92567

== ENCOUNTER 2025-03-13 12:54 | Outpatient (CLI) | payer OTHER, SELFPAY ==
--- OUTSIDE RECORDS SUMMARY | 2025-03-13 12:57 | XMS_ITS | Clinical Summary ---
Author Organization 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
--- OUTSIDE RECORDS SUMMARY | 2025-03-13 12:57 | XMS_ITS | Clinical Summary ---
Author Organization [facility] Address [address] [place] [address] Care Team Providers Care Trim Setter Helper Name Role Phone Rob Pineda MD Primary Care Provider [phone] Social History Tobacco Use Types Packs/Day Years Used Date Smoking Tobacco: Never Assessed Sex and Gender Information Value Date Recorded Sex Assigned at Not on file Legal Sex Male 4:20 PM CDT Gender Identity Not on file Sexual Orientation Not on file Plan of Treatment Health Maintenance Due Date Last Done Comments Colorectal Cancer Screening Colonoscopy (10 Years) 1954 Hepatitis C 02/01/1972 DTaP, Tdap and Td Vaccines ( 1 - Tdap) 1973 Pneumococcal Vaccine: 50+ Ye ars (1 of 1 - PCV) 02/01/2004 Zoster Vaccines (1 of 2) 02/01/2004 COVID-19 Vaccine ( - 2023-2 5 season) 2024 RSV Immunization or 60+ Years (1 - 1-dose 75+ series) 2029 Meningococcal B Vaccine Aged Out No l onger eligible based on patient's age to complete this topic Meningococcal Vaccine Aged Out No yaima delfino eligible based on patient's age to complete this topic RSV Immunizations Under 20 Months Aged Out No longer eligible based on patient's age to complete this topic Care Teams Trim Setter Helper Relationship Specialty Start Date End Date Rob Pineda MD PCP - General 04/24/14
[2025-03-13 15:10] LABS: Anion Gap 9 mmol/L (4-12); Blood Urea Nitrogen 26 mg/dL (9-20); Calcium 9.4 mg/dL (8.4-10.2); Carbon Dioxide 28 mmol/L (22-30); Chloride 105 mmol/L (98-107); Estimated Glomerular Filt Rate > 60; Glucose 107 mg/dL (65-110); Potassium 3.6 mmol/L (3.4-5.0); Sodium 142 mmol/L (137-145)
== END 2025-03-13 12:55 | disposition home or self-care (01) ==
PROVIDERS: PCP Family Medicine; Visit Provider Anesthesiology
DX: Z01.818 Encounter for other preprocedural examination (principal); I10 Essential (primary) hypertension
CPT/HCPCS: 36415; 80048

== ENCOUNTER 2025-03-18 09:30 | Day surgery (SDC) | payer OTHER, SELFPAY ==
[2025-03-11 10:28] VITALS: BMI 35.9
[2025-03-18] VITALS (9 sets, daily range): BP systolic 110–133; BP diastolic 61–79; PULSE 62–75; RESP 14–18; TEMP 36.8–37.1; O2SAT 92–99
--- NOTE | 2025-03-18 07:58 | WPDHPUPDATE1 ---
History and Physical Update Update Date/Time: 03/18/25 07:58 History and Physical has been reviewed, including an updated exam of the patient. There are NO changes in the patient's condition. Risks, benefits, and alternatives have been discussed and questions answered. Patient agrees to proceed with procedure.
--- OUTSIDE RECORDS SUMMARY | 2025-03-18 09:51 | XMS_ITS | Clinical Summary ---
Author Organization [facility] Address [address] [place] [address] Care Team Providers Care Feather Shaper Name Role Phone Rob Pineda MD Primary Care Provider [phone] Social History Tobacco Use Types Packs/Day Years [...] age to complete this topic Care Teams Feather Shaper Relationship Specialty Start Date End Date Rob Pineda MD PCP - General 04/24/14
--- OUTSIDE RECORDS SUMMARY | 2025-03-18 09:51 | XMS_ITS | Clinical Summary ---
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 Gender Identity Not on file Sexual Orientation [...] (1 of 2) 02/01/2004 INFLUENZA VACCINE (#1) 2025 RSV VACCINE (60+ or ) (1 - 1-dose 75+ series) 2029 Insurance RX MEDIMPACT Member Subscriber Plan / Payer (Ef fective for All Dates) Name:Adam Renae Relation to Subscriber:Self Name:Adam Renae Subscriber ID:Not on file Payer ID:Not on file Group ID:[id number] Type:RX Medicare Part D Address: [address] Advance Directives For more information, please contact: [phone] * Full Code (Latest Code Status on File) Date Activated Date Inactivated Comments 04/04/2018 2:29 PM 04/08/2018 4:31 PM Care Teams Hemotherapist Relationship Specialty Start Date End Date Antony Doran DO PCP - General Internal Medicine 04/04/18
[2025-03-18] MEDS: LACTATED RINGERS 1,000 ML 30 ML IV CONT ×2 (10:05→13:41)
--- NOTE | 2025-03-18 10:58 | WPDANESEPPF ---
Anes - Initial Pre Proc Eval Procedure: Operation Date: 03/18/25 11:00 Proposed Procedures p Left Myringotomy with Insertion of Tube - Clifford Reed MD s Endoscopic Assisted Septoplasty - Clifford Reed MD s Bilateral Inferior Turbinate Reduction with Outfracture - Clifford Reed MD Date/Time: 03/18/25 10:58 Surgeon: Clifford Reed MD Pre Op Diagnosis: Otitis Media, Deviated Nasal Septum Patient Data Age: 70 Gender: M Height: 1.75 m Weight: 111.05 kg Last Vital Signs Temp 37.1 C 03/18/25 10:20 Pulse 70 03/18/25 10:20 Resp 18 03/18/25 10:20 BP 110/61 03/18/25 10:20 Pulse Ox 95 03/18/25 10:20 O2 Del Method Room Air 03/18/25 10:20 Allergies Allergy/AdvReac Type Severity Reaction Status Date / Time No Known Allergies Allergy Verified 03/18/25 10:20 Home Medications ?Medication ?Instructions ?Recorded ?Confirmed ?Type multivitamin 1 tablet PO DAILY 10/18/22 03/18/25 History vitamin B complex (B 1 tablet PO DAILY 11/17/22 03/18/25 History Complex-Vitamin B12 tablet) vitamin E (dl, acetate) 180 mg 180 mg PO DAILY 11/17/22 03/18/25 History (400 unit) capsule desoximetasone 0.25 % topical cream 1 applic topical DAILY PRN skin 05/25/23 03/18/25 Rx irritation #15 grams aspirin 81 mg tablet,delayed 81 mg PO BID 11/28/23 03/18/25 History release (Adult Low Dose Aspirin) testosterone 30 mg/actuation (1.5 2 pump topical DAILY #90 mL 07/24/24 03/18/25 Rx mL) transderm solution metered pump albuterol sulfate 90 mcg/actuation See Rx Instructions .Route 08/26/24 03/18/25 Rx aerosol inhaler .COMPLEX ##8.5 cyclobenzaprine 10 mg tablet 10 mg PO TID PRN muscle spasm #90 08/26/24 03/18/25 Rx tabs lisinopril 20 See Rx Instructions .Route 10/14/24 03/18/25 Rx mg-hydrochlorothiazide 25 mg tablet .COMPLEX #90 tabs montelukast 10 mg tablet See Rx Instructions .Route 10/14/24 03/18/25 Rx .COMPLEX #90 tabs pantoprazole 40 mg tablet,delayed 40 mg PO QAM #90 tabs 10/14/24 03/18/25 Rx release ropinirole 0.5 mg tablet See Rx Instructions .Route 10/25/24 03/18/25 Rx .COMPLEX #90 tabs tamsulosin 0.4 mg capsule See Rx Instructions .Route 11/20/24 03/18/25 Rx .COMPLEX #90 caps gabapentin 300 mg capsule 300 mg PO TID PRN pain #270 caps 11/21/24 03/18/25 Rx (Neurontin) clemastine 2.68 mg tablet See Rx Instructions .Route 01/02/25 03/18/25 Rx .COMPLEX #180 tabs azelastine 137 mcg (0.1 %) nasal See Rx Instructions .Route 01/14/25 03/18/25 Rx spray .COMPLEX #30 mL hydrocodone 7.5 mg-acetaminophen 1 tablet PO Q6H PRN pain #120 tabs 02/06/25 03/18/25 Rx 325 mg tablet meloxicam 15 mg tablet See Rx Instructions .Route 02/06/25 03/18/25 Rx .COMPLEX #30 tabs cholecalciferol (vitamin D3) 50 50 mcg PO DAILY 03/11/25 03/18/25 History mcg (2,000 unit) capsule (Vitamin D3) magnesium 500 mg tablet 500 mg PO DAILY 03/11/25 03/18/25 History fluticasone propionate 50 See Rx Instructions .Route 03/13/25 03/18/25 Rx mcg/actuation nasal .COMPLEX #48 mL spray,suspension Patient hx anesthesia problems: none Family hx anesthesia problems: none Results Review: All pre-operative results and documents have been reviewed as part of the pre-operative evaluation. [facility] Past Medical History Medical History LENKA (obstructive sleep apnea) Obesity Back pain History of basal cell carcinoma (BCC) of skin Hemorrhoids BPH w/o urinary obs/LUTS Essential hypertension Heartburn Impaired glucose tolerance Pulmonary embolism, bilateral Rectal hemorrhage due to ulcerative colitis Superficial thrombophlebitis of left upper extremity Ulcerative colitis with complication Umbilical hernia Uncomplicated asthma Ventral hernia without obstruction or gangrene Surgical History Surgical History History of lumbar surgery Presence of right artificial knee joint Family History Family History Sibling Patient's sister is in good health Patient's brother is in good health Father Family history of dementia Patient's father is Family history of arthritis Mother Patient's mother is Family history of arthritis Social History Social History Smoking status: Never smoker Second hand tobacco smoke exposure: No Alcohol intake: never Substance use: never Substance use type: does not use Do You Feel Safe in your Home?: Yes Lack of Transportation: No Current Housing: Decline to Answer Concerned About Future Housing: Decline to Answer Difficulty Paying Gas/Electric Bills: Decline to Answer Difficulty Paying for Meds: Decline to Answer Currently Unemployed: Decline to Answer Education: Decline to Answer Difficulty w/ Childcare or Family Care: Decline to Answer Living arrangements: with family Occupation/Education: occupation Spiritual care concerns: No Anes - Eval Final PreProcedure Day of Procedure 03/18/25 10:58 Patient weight: obese Heart: regular rate and rhythm Lungs: clear to auscultation Airway: Mallampati scale class 1 Neurological: alert and oriented Last oral intake: >/= 8 hours ASA classification: II Emergent: no Anesthetic plan: proceed Anesthesia type and monitoring: general Results Review: All pre-operative results and documents have been reviewed as part of the pre-operative evaluation. Informed Consent: The patient's anesthetic plan and its attendant risks and benefits were discussed with the patient/family/POA. Questions were solicited and answers provided to the satisfaction of the patient/family/POA.
[2025-03-18] MEDS: ceFAZolin SODIUM 2 GM/20 ML SW SYRINGE IV PUSH (11:35)
[2025-03-18] MEDS: OXYMETAZOLINE HCL 0.05% NAS 15 ML BTL (*BKC) 1 SPRAY XX (12:03)
[2025-03-18] MEDS: CIPROFLOXACIN HCL 0.3% OP SOLN 2.5 ML BTL 4 DROP EACH EAR (12:05)
[2025-03-18] MEDS: LIDO 1%/EPINEPHRINE 1:100,000 10 ML VIAL INFILTRATE (13:07)
[2025-03-18] MEDS: MUPIROCIN 2% OINT 22 GM TUBE 1 APPLIC TOPICAL (13:12)
--- NOTE | 2025-03-18 13:20 | WPDANESPN ---
Anes - Prog Note Post-Op Date/Time: 03/18/25 13:20 Vital Signs: Last Vital Signs Temp 98.8 F 03/18/25 10:20 Pulse 70 03/18/25 10:20 Resp 18 03/18/25 10:20 BP 110/61 03/18/25 10:20 Pulse Ox 95 03/18/25 10:20 O2 Del Method Room Air 03/18/25 10:20 Pain Score (VAS): 3 Patient Feedback: Patient satisfied with anesthetic care.
--- NOTE | 2025-03-18 13:20 | SUR.OPER ---
4ml Floseal used during procedure. Lot# [id number] Expiration date: 07/16/2026
[2025-03-18] MEDS: fentaNYL CITRATE INJ (*CRX) 100 MCG/2 ML VIAL 25 MCG IV PUSH ×2 (13:58→14:13)
[2025-03-18] MEDS: oxyCODONE HCL (*CRX) 5 MG TAB IR PO (14:43)
--- NOTE | 2025-03-18 15:15 | SUR.PHASEII ---
Pt and pt's advised that he should not take his home hydrocodone-acetaminophen prescription if he is also taking the oxycodone prescription from Dr. Reed.
--- NOTE | 2025-03-18 16:20 | W.PM.PROC2 ---
Procedure Note - Detailed Date of Procedure 03/18/25 Pre-op Diagnosis Otitis Media, Deviated Nasal Septum Post-op Diagnosis Same Procedure Performed Left-sided ear exam under anesthesia with myringotomy, Left ear debridement, endoscopic assisted septoplasty, bilateral inferior turbinate reduction with outfracture Surgeon Clifford Reed MD Anesthesia General Indications see above Findings rightward deviated septum caudally large turbinates, left ear no fluid in the middle ear however there was thick crust over the eardrum. Description of Procedure patient identified consent verified the preoperative holding area. Patient brought to the operating. Time-out performed. General anesthesia induced endotracheal tube secured airway. Patient prepped draped position procedure confirmed 2nd time-out performed. Left ear viewed myringotomy made no fluid at this point was noted there is a thick crust over the tympanic membrane that was not previously noted. This crust was removed /Debrided. some bleeding ensued this was easily stopped with Afrin-soaked cotton balls. Drops were placed. The bed was then rotated patient positioned nose examined with a 0 degree endoscope. Total 15 cc 1% lidocaine with 1 100,000 parts epinephrine injected the bilateral nasal septum and bilateral inferior turbinates. [place] incision made left side left nasal septal flap elevated 7 Georgian suction small tear inferiorly kind of releasing tear. Osteotome utilized to cross over the septum anteriorly right nasal septal flap elevated. Deviated septum removed Hoang forceps Babak Cain forceps and osteotome bleeding osteotome. Bleeding controlled with Surgiflo applied to the inferior aspect and superior cancellous bone. Septum copiously irrigated out flaps were placed much more patent airway Dat incision closed with 4 interrupted 5 0 fast gut sutures. Inferior turbinates reduced the submucosal plane using microdebrider [employer] JOINTtronic 1.9 mm blade. No tears other than the anterior deliberate stab incision. They were then outfractured much more patent airway was able to reset the caudal septum to the left side hopefully it stays this way. Elizondo splints were then placed and sutured anteriorly using a 3-0 mattress nylon suture. Patient tolerated the procedure well no complications blood loss 35 cc. Care the patient back to Anesthesiology. I performed all dictated portions of procedure. Estimated Blood Loss 35 Drains No Packing No Pathology None sent Complications No immediate complications Condition Stable Disposition PACU [facility] Billing Surgery - Charge Forward: Surgery Billing
== END 2025-03-18 15:15 | disposition home or self-care (01) ==
PROVIDERS: PCP Family Medicine; Visit Provider Otolaryngology
PROC: (CPT 30520; principal; 2025-03-18 11:00)
PROC: (CPT 30520; 2025-03-18 11:00)
PROC: (CPT 30520; 2025-03-18 11:00)
DX: H66.93 Otitis media, unspecified, bilateral (principal); J34.2 Deviated nasal septum
CPT/HCPCS: 30520; 30140; 69421; J7342

== ENCOUNTER 2025-03-25 11:09 | Outpatient (CLI) | payer OTHER, SELFPAY ==
--- OUTSIDE RECORDS SUMMARY | 2025-03-25 11:27 | XMS_ITS | Clinical Summary ---
Author Organization [facility] Address [address] [place] [address] Care Team Providers Care Digital Marketing Project Manager Name Role Phone Rob Pineda MD Primary Care Provider [phone] Social History Tobacco Use Types Packs/Day Years [...] age to complete this topic Care Teams Digital Marketing Project Manager Relationship Specialty Start Date End Date Rob Pineda MD PCP - General 04/24/14
--- OUTSIDE RECORDS SUMMARY | 2025-03-25 11:27 | XMS_ITS | Clinical Summary ---
Author Organization [facility] Address [address] [place] [address] Phone Care Team Providers Care Quiller Operator Name Role Phone Antony Doran Primary Care Provider [phone] Allergies Active Allergy Reactions Criticality Noted Date [...] on file Legal Sex Male 5:10 AM BOTTOM SPRAYER Gender Identity Not on file Sexual Orientation [...] Advance Directives For more information, please contact: [phone] * Full Code (Latest Code Status on File) Date Activated Date Inactivated Comments 04/04/2018 2:29 PM 04/08/2018 4:31 PM Care Teams Quiller Operator Relationship Specialty Start Date End Date Antony Doran DO PCP - General Internal Medicine 04/04/18
[2025-03-25 15:00] LABS: Hematocrit 48.0 % (42.0-52.0); Hemoglobin 16.1 g/dL (14.0-18.0); Mean Corpuscular HGB Conc 33.5 g/dl (32-36); Mean Corpuscular Hemoglobin 31.1 pg (26-34); Mean Corpuscular Volume 92.7 fl (80-100); Platelet Count Result 351 k/mm3 (150-375); Red Blood Count 5.18 M/mm3 (4.6-6.20); White Blood Count 12.3 K/mm3 (4.5-10.0)
[2025-03-25 15:15] LABS: Alanine Aminotransferase 20 U/L (6-50); Albumin Level 4.0 g/dL (3.5-5.1); Alkaline Phosphatase 62 U/L (38-126); Anion Gap 7 mmol/L (4-12); Aspartate Amino Transferase 84 U/L (17-59); Bilirubin,Total 0.8 mg/dL (0.2-1.3); Blood Urea Nitrogen 21 mg/dL (9-20); CRP 4.3 mg/dL (<1.0); Calcium 8.9 mg/dL (8.4-10.2); Carbon Dioxide 29 mmol/L (22-30); Chloride 103 mmol/L (98-107); Estimated Glomerular Filt Rate > 60; Glucose 102 mg/dL (65-110); Potassium 3.8 mmol/L (3.4-5.0); Sodium 139 mmol/L (137-145); Total Protein 7.4 g/dL (6.3-8.2)
== END 2025-03-25 11:10 | disposition home or self-care (01) ==
LOC: ANHGOSHLAB 11:10
PROVIDERS: PCP Family Medicine; Visit Provider Internal Medicine Gastroenterology
DX: K51.90 Ulcerative colitis, unspecified, without complications (principal)
CPT/HCPCS: 36415; 80053; 85027; 85652; 86140

== ENCOUNTER 2025-03-26 11:51 | Outpatient (CLI) | payer OTHER, SELFPAY ==
--- OUTSIDE RECORDS SUMMARY | 2025-03-26 12:13 | XMS_ITS | Clinical Summary ---
Author Organization [facility] Address [address] [place] [address] Care Team Providers Care Mosaic Worker Name Role Phone Rob Pineda MD Primary Care Provider [phone] Social History Tobacco Use Types Packs/Day Years [...] age to complete this topic Care Teams Mosaic Worker Relationship Specialty Start Date End Date Rob Pineda MD PCP - General 04/24/14
[2025-03-28 05:07] LABS: Calprotectin, Fecal 243 ug/g (0-120)
== END 2025-03-26 11:52 | disposition home or self-care (01) ==
PROVIDERS: PCP Family Medicine; Visit Provider Internal Medicine Gastroenterology
DX: K51.919 Ulcerative colitis, unspecified with unspecified complications (principal)
CPT/HCPCS: 83993

== ENCOUNTER 2025-05-05 11:21 | Outpatient (CLI) | payer OTHER, SELFPAY ==
--- OUTSIDE RECORDS SUMMARY | 2025-05-05 12:02 | XMS_ITS | Clinical Summary ---
Author Organization [facility] Address [address] [place] [address] Phone Care Team Providers Care Wind Turbine Installer Name Role Phone Antony Doran Primary Care Provider [phone] Allergies Active Allergy Reactions Criticality Noted Date [...] on file Legal Sex Male 5:10 AM X RAY EQUIPMENT SERVICER Gender Identity Not on file Sexual Orientation [...] Advance Directives For more information, please contact: [phone] * Full Code (Latest Code Status on File) Date Activated Date Inactivated Comments 04/04/2018 2:29 PM 04/08/2018 4:31 PM Care Teams Wind Turbine Installer Relationship Specialty Start Date End Date Antony Doran DO PCP - General Internal Medicine 04/04/18
--- OUTSIDE RECORDS SUMMARY | 2025-05-05 12:02 | XMS_ITS | Clinical Summary ---
Author Organization [facility] Address [address] [place] [address] Care Team Providers Care Resistor Testing Machine Operator Name Role Phone Rob Pineda MD Primary Care Provider [phone] Social History Tobacco Use Types Packs/Day Years [...] age to complete this topic Care Teams Resistor Testing Machine Operator Relationship Specialty Start Date End Date Rob Pineda MD PCP - General 04/24/14
--- OUTSIDE RECORDS SUMMARY | 2025-05-05 12:02 | XMS_ITS | Clinical Summary ---
Author Organization [facility] Healthcare Address [address] [place] [address] Care Team Providers Care Cripple Worker Name Role Phone Talha Samayoa MD Primary Care Provider [phone] Allergies Active Allergy Reactions Criticality Noted Date Comments Penicillins Rash Medium 01/24/2018 Medications HYDROcodone-ari taminophen (NORCO) 7.5-325 mg per tabletIndicatio ns:Pain Take 1 tablet by mouth 4 (four) times a day as needed. 0 8 Active balsalazide (COLAZAL) 750 mg capsuleIndicati ons:Ulcerative Colitis Take 3,000 mg by mouth 2 (two) times a day. Active lisinopril-hydr oCHLOROthiazide (PRINZIDE,ZESTO RETIC) 20-25 mg per tabletIndicatio ns:hypertension Take 1 tablet by mouth daily. Active azaTHIOprine (IMURAN) 50 mg tablet Take 50 mg by mouth 3 (three) times a day. Active clemastine tablet Take 2.68 mg by mouth 2 (two) times a day. Active omeprazole (PriLOSEC) 40 mg capsule Take 40 mg by mouth daily. Active multivitamin capsule Take 1 capsule by mouth daily. Active aspirin 81 mg tablet Take 81 mg by mouth daily. Active albuterol HFA (PROVENTIL HFA,VENTOLIN HFA) 90 mcg/actuation inhaler Inhale 2 puffs every 6 (six) hours as needed for wheezing. Active montelukast (SINGULAIR) 10 mg tablet Take 10 mg by mouth nightly. Active gocptwdu-ify-RB -lycopen-lutein 0.4-300-250 mg-mcg-mcg tabletIndicatio ns:Vitamin Deficiency Prevention Active vitamin E acid succinate (VITAMIN E SUCCINATE) 100 unit tablet Active cyclobenzaprine (FLEXERIL) 10 mg tablet TAKE 1 TABLET BY MOUTH THREE TIMES A DAY NEEDED FOR MUSCLE SPASM 2 Active Flovent HFA 110 mcg/actuation inhaler INHALE 1 PUFF BY MOUTH EVERY 12 HOURS ADMINISTER WITH SPACER 2 Active gabapentin (NEURONTIN) 300 mg capsule Take 300 mg by mouth 3 (three) times a day 2 Active lidocaine (LIDODERM) 5 % APPLY 1 PATCH TOPICALLY DAILY LEAVE ON MOST PAINFUL AREA FOR UP TO 12 HRS CUT TO SIZE [address] (PROTONIX) 40 mg EC tablet Take 40 mg by mouth every morning 2 Active rOPINIRole (REQUIP) 0.5 mg tablet Take 0.5 mg by mouth daily 2 Active cholecalciferol (VITAMIN D-3) 5,000 unit tablet Active zinc 50 mg tablet Take by mouth Active coenzyme Q10 200 mg capsule Take 200 mg by mouth daily Active tamsulosin (FLOMAX) 0.4 mg extended release capsule Take 1 capsule (0.4 mg total) by mouth 2 (two) times a day 180 capsule 3 5 Active Active Problems Problem Noted Date Diagnosed Date Intervertebral disc disorder with radiculopathy of lumbar region 07/25/2022 Overview (07/25/2022): Added automatically from request for surgery [id number] Acute blood loss anemia 07/21/2022 Gastrointestinal hemorrhage 07/21/2022 Elevated PSA 07/12/2022 Overview (07/12/2022): Added automatically from request for surgery [id number] Hematochezia 04/04/2018 History of pulmonary embolism 04/04/2018 History of ulcerative colitis 04/04/2018 Urolithiasis 01/01/2018 Encounters Date Type Department Care Team Description 04/11/2025 Telephone [facility] Medicine Otolaryngology [address] [place] [address] Franny Kirkland MS from Last 3 Months Immunizations Immunization Administration Dates Next Due Hep B Vaccine 08/20/2017 Influenza, Quadrivalent, Hig h Dose, Preservative Free, Intrr 06/04/2020 Influenza, Trivalent, High D ose, Split, Preservative Free, Intramuscular 06/01/2019 Influenza, Trivalent, IM (MDV) 05/21/2018 Tdap 05/27/2019 ZOSTER LIVE 05/27/2019 ZOSTER Recombinant 08/05/2019,05/27/2019 Surgical History Surgery Date Site/Laterality Comments SPINE SURGERY lumbar discectomy HAND SURGERY Right crush injury, surgery X 6 ROTATOR CUFF REPAIR Bilateral JOINT REPLACEMENT Right knee KNEE ARTHROSCOPY Right UMBILICAL HERNIA REPAIR Medical History Medical History Date Comments Sleep apnea Hypertension Asthma Ulcerative colitis GERD (gastroesophageal reflux disease) Kidney stone Arthritis Cervical disc disease Cervical stenosis (uterine cervix) Gastric reflux Disc disorder of lumbar region Rectal bleeding Peptic ulceration Family History Medical History Relation Name Comments Arthritis Father Arthritis Mother Cancer Mother Hypertension Mother Cancer Sister Relation Name Status Comments Father Mother Sister Social History Tobacco Use Types Packs/Day Years Used Date Smoking Tobacco: Never Smokeless Tobacco: Never Tobacco Cessation:Counseling Given: Not Answered Alcohol Use Standard Drinks/Week Comments No 0 (1 standard drink = 0.6 oz pur e alcohol) AUDIT-C Answer Date Recorded Q1: How often do you have a drink containing alc ohol? Never 07/21/2022 Average Number of Drinks Not on file 022 Q3: How often do you have si x or more drinks on one occasion? 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 HELPER Gender Identity Not on file Sexual Orientation Not on file Occupation Industry Job Start Date Job End Date Retired Not on file Not on file Not on file Obstetrics History Last Filed Vital Signs Vital Sign Reading Time Taken Comments Blood Pressure 149/79 08/19/2022 9:18 AM CATCHER HELPER Pulse 77 08/19/2022 9:18 AM CATCHER HELPER Temperature 36.7 C (98 F) 04/21/2023 1:08 PM CDT Respiratory Rate 16 08/19/2022 9:18 AM CATCHER HELPER Oxygen Saturation 95% 08/19/2022 9:18 AM CATCHER HELPER Inhaled Oxygen Concentration - - Weight 113.4 kg (250 lb) 08/19/2022 7:41 AM CATCHER HELPER Height 180.3 cm (5' 11) 08/19/2022 7:41 AM CATCHER HELPER Body Mass Index 34.87 08/19/2022 7:41 AM CATCHER HELPER Plan of Treatment Health Maintenance Due Date Last Done Comments Colon Cancer Screening-Colonoscopy 1954 Depression Screening 1954 Hepatitis C Screening 1954 Pneumococcal vaccine 65+ (1 of 2 - PCV) 1973 Well Visit 65+ 2019 Fall Risk Assessment 08/19/2023 08/19/2022 Influenza Vaccine (#1) 2025 0, 06/01/2019, 05/21/2018 DTaP/Tdap/Td Vaccine (2 - Td or Tdap) 05/27/2029 05/27/2019 Hepatitis B Screening Completed 08/20/2017 Zoster Vaccine Completed 08/05/2019, 05/12, 05/27/2019 Prostate Cancer Screening-PSA Discontinued 07/08/2022 Goals Goal Patient Goal Type Associated Problems Recent Progress Patient-Stated? Author CCM Chronic Pain Care Plan Chronic Care Management Rima Caputo, RN Note: Problem: Chronic Pain Goals: 1. Minimize further functional decline 2. Maximize quality of life 3. Control pain Strategies: - Activity/exercise program recommendation - Conservative stepwise pain medicine strategy with multi-disciplinary approach - Recommend healthy lifestyle strategies and compensatory methods as needed Procedures Procedure Name Priority Date/Time Associated Diagnosis Comments PSA SCREEN Routine 07/08/2022 3:50 PM CDT Elevated PSA from Last 3 Months or Most Recently Relevant to Health Maintenance Results * (ABNORMAL) PSA screen (07/08/2022 3:50 PM CDT) PSA-Total 5.78(H) <=5.40 ng/mL [facility] Comment: Interpretive Data AGE SEX REFERENCE INTERVAL 0 minutes-150 years Female None 0 minutes-49 years Male None 50-59 years Male 0-3.90 60-69 years Male 0-5.40 70-79 years Male 0-6.20 80-150 years Male 0-6.20 The Yasir PSA Total assay procedure was used. Results from different manufacturers or methods may not be comparable. Serial testing should be performed using the same method. Current interpretive data last revised 22. Blood 07/08/2022 3:50 PM CDT 07/08/2022 6:44 PM CDT Umm Malin MD LAB [place]LOOD [place] [id number] [address] Department [place] [address] from Last 3 Months or Most Recently Relevant to Health Maintenance Insurance [facility] Advance Directives For more information, please contact: [phone] * Full Code (Latest Code Status on File) Date Activated Date Inactivated Comments 2018 6:41 PM 02/01/2018 1:34 PM Care Teams Cripple Worker Relationship Specialty Start Date End Date Talha Samayoa MD PCP - General Family Practice 08/07/23
[2025-05-05 14:56] LABS: Hemoglobin A1C 5.3 % (<5.7)
[2025-05-05 15:43] LABS: Cholesterol 173 mg/dL (0-200); HDL Direct 43 mg/dL; Triglycerides 97 mg/dL (<150)
[2025-05-05 16:21] LABS: Prostate Specific Antigen 3.1 ng/mL (< OR = 4.0)
== END 2025-05-05 11:22 | disposition home or self-care (01) ==
LOC: ANHGOSHLAB 11:22
PROVIDERS: PCP Family Medicine; Visit Provider Family Medicine
DX: Z12.5 Encounter for screening for malignant neoplasm of prostate (principal); R73.03 Prediabetes; I10 Essential (primary) hypertension; R79.89 Other specified abnormal findings of blood chemistry; E66.9 Obesity, unspecified; J45.909 Unspecified asthma, uncomplicated
CPT/HCPCS: 36415; 80061; 83036; 84153; G0103

== ENCOUNTER 2025-08-01 14:26 | Outpatient (CLI) | payer OTHER, SELFPAY ==
--- OUTSIDE RECORDS SUMMARY | 2025-08-01 14:29 | XMS_ITS | Clinical Summary ---
Author Organization [employer] Address [address] [place] [address] Care Team Providers Care Interactive Art Director Name Role Phone Talha Samayoa MD Primary Care Provider [phone] Source Comments [facility],non-owned Affiliates and Associated Physician Practices is amultiple site organization consisting of ambulatory clinics and hospital sitesin [place], [place], [place] and [place]. This disclosure is being madepursuant to the Care Everywhere program and may not contain all information available regarding this patient. Last updated 18.[facility] Allergies Active Allergy Reactions Criticality Noted Date Comments Penicillins Rash Medium 01/24/2018 Medications * Be aware that medications may not be up to date on this document. Alwaysverify current medications with the patient. balsalazide (Colazal) 750 MG capsule TAKE FOUR CAPSULES BY MOUTH TWICE A DAY Active azaTHIOprine (Imuran) 50 MG tablet Take 3 (three) tablets by mouth once daily Active lisinopril-hydr oCHLOROthiazide (Prinzide; Zestoretic) 20-25 MG tablet Take 1 (one) tablet by mouth once daily Active meloxicam (Mobic) 15 MG tablet Take 1 (one) tablet by mouth once daily 4 Active Clemastine Fumarate 2.68 MG Take 1 (one) tablet by mouth 2 times daily Active pantoprazole EC (Protonix) 40 MG tablet Take 1 (one) tablet by mouth every morning 4 Active cyclobenzaprine (Flexeril) 10 MG tablet TAKE 1 TABLET BY MOUTH THREE TIMES A DAY NEEDED FOR MUSCLE SPASM 3 Active gabapentin (Neurontin) 300 MG capsule Take 1 (one) capsule by mouth 3 Active HYDROcodone-ari taminophen ([place]) 7.5-325 MG tablet Take 1 (one) tablet by mouth every 6 hours as needed pain Active albuterol HFA (Proventil; Ventolin; Proair) 108 (90 Base) MCG/ACT inhaler INHALE 2 PUFFS BY MOUTH EVERY 6 HOURS NEEDED FOR SHORTNESS OF BREATH OR WHEEZING. Active montelukast (Singulair) 10 MG tablet Take 1 (one) tablet by mouth once daily Active tamsulosin (Flomax) 0.4 MG capsule Take 1 (one) capsule by mouth once daily 4 Active rOPINIRole (Requip) 0.5 MG tablet Take 1 (one) tablet by mouth once daily 4 Active saw palmetto 160 MG capsule Activ e Vitamin E 100 units TABS Active multivitamins (One A Day) capsule Take 1 (one) capsule by mouth once daily Active Active Problems Problem Noted Date Diagnosed Date Cervical myelopathy 05/14/2024 Chronic midline low back pain without sciatica 0 05/14/2024 Social History Tobacco Use Types Packs/Day Years Used Date Smoking Tobacco: Never Smokeless Tobacco: Never Tobacco Cessation:Counseling Given: Not Answered Sex and Gender Information Value Date Recorded Sex Assigned at Not on file Legal Sex Male 6:53 PM ASSISTANT SPA MANAGER Gender Identity Not on file Sexual Orientation Not on file Last Filed Vital Signs Vital Sign Reading Time Taken Comments Blood Pressure - - Pulse - - Temperature - - Respiratory Rate - - Oxygen Saturation - - Inhaled Oxygen Concentration - - Weight 95.7 kg (211 lb) 03/28/2024 11:51 AM CDT Height 180.3 cm (5' 11) 03/28/2024 11:51 AM CDT Body Mass Index 29.43 03/28/2024 11:51 AM CDT Plan of Treatment Health Maintenance Due Date Last Done Comments COLOGUARD (AGES 45-75) - COL ON CA SCREENING 1954 COLON MONITORING 1954 COLONOSCOPY - COLON CA SCREENING 1954 CT COLONOGRAPHY - COLON CA SCREENING 1954 Colorectal Cancer Screening 1954 FIT - COLON CA SCREENING 1954 FLEX SIG - COLON CA SCREENING 1954 LIPID TESTING 1954 MEDICARE AWV 12 MONTHS 1954 COVID-19 VACCINE (#1) 1959 HEPATITIS C SCREENING 01/27/1972 DTAP/TDAP/TD VACCINES (1 - Tdap) 1973 PNEUMOCOCCAL VACCINE 50+ (1 of 2 - PCV) 1973 ZOSTER VACCINE (1 of 2) 1973 Respiratory Syncytial Virus (RSV) Vaccine Pt: or over 60 yrs (1 - Risk 50-74 years 1-dose series) 02/01/2004 SCREENING FOR DIABETES 03/07/2024 DEPRESSION SCREENING 09/11/2024 INFLUENZA VACCINE (#1) 2025 , 05/21/2018 HEPATITIS B VACCINE Aged Out No longe r eligible based on patient's age to complete this topic HIB VACCINE Aged Out No longer eligi ble based on patient's age to complete this topic HPV VACCINE Aged Out No longer eligi ble based on patient's age to complete this topic MENINGOCOCCAL (Group B) VACCINE SHARED DECISION-MAKING Aged Out No longer eligible based on patient's age to complete this topic MENINGOCOCCAL GROUPS A/C/Y/W VACCINE Aged Out No longer eligible b ased on patient's age to complete this topic Insurance [facility] MED[facility]ARE [facility] MEDIC[facility] Care Address: [place] [address] SELF PAY NO INSURANCE Member Subscriber Plan / Payer (Ef fective for All Dates) Name:Adam Caceres Member ID:Not on file Relation to Subscriber:Not on file Name:ADAM CACERES Subscriber ID:Not on file (Home) Address: [address] [place] [address] [place] [address] Payer ID:Not on file Group ID:Not on file Type:Self Pay Address: [place], [place] Care Teams Interactive Art Director Relationship Specialty Start Date End Date Talha Samayoa MD [address] [place] [address] PCP - General Family Medicine 03/07/24
--- OUTSIDE RECORDS SUMMARY | 2025-08-01 14:29 | XMS_ITS | Clinical Summary ---
Author Organization [facility] Healthcare Address [address] [place] [address] Care Team Providers Care Flooring Professional Name Role Phone Talha Samayoa MD Primary Care Provider [phone] Allergies Active Allergy Reactions Criticality Noted Date [...] Take 10 mg by mouth nightly. Active [id number] -lycopen-lutein 0.4-300-250 mg-mcg-mcg tabletIndicatio ns:Vitamin Deficiency Prevention [...] Active Problems Problem Noted Date Diagnosed Date Asymmetrical hearing loss 05/27/2025 Intervertebral disc disorder with radiculopathy of lumbar region 07/25/2022 Overview (07/25/2022): Added automatically from request for surgery [id number] Acute blood loss anemia 07/21/2022 Gastrointestinal hemorrhage 07/21/2022 Elevated PSA 07/12/2022 Overview (07/12/2022): Added automatically from request for surgery [id number] Hematochezia 04/04/2018 History of pulmonary embolism 04/04/2018 History of ulcerative colitis 04/04/2018 Urolithiasis 01/01/2018 Encounters Date Type Department Care Team Description 05/27/2025 9:00 AM CDT Office Visit [facility] Medicine Otolaryngology [address] [place] [address], [address] [place] [address] Shukri Graham MD Asymmetrical hearing loss (Primary Dx) 05/27/2025 8:40 AM CDT Procedure visit [facility] Medicine Otolaryngology [address], [address] [place] [address] Sensorineural hearing loss, bilateral (Primary Dx) from Last 3 Months Immunizations Immunization Administration [...] on file Legal Sex Male 10:55 AM RECYCLE WORKER Gender Identity Not on file Sexual Orientation Not on file Occupation Industry Job Start Date Job End Date Retired Not on file Not on file Not on file Last Filed Vital Signs Vital Sign Reading Time Taken Comments Blood Pressure 149/79 08/19/2022 9:18 AM RECYCLE WORKER Pulse 77 08/19/2022 9:18 AM RECYCLE WORKER Temperature 36.7 C (98 F) 04/21/2023 1:08 PM CDT Respiratory Rate 16 08/19/2022 9:18 AM RECYCLE WORKER Oxygen Saturation 95% 08/19/2022 9:18 AM RECYCLE WORKER Inhaled Oxygen Concentration - - Weight 113.4 kg (250 lb) 08/19/2022 7:41 AM RECYCLE WORKER Height 180.3 cm (5' 11) 08/19/2022 7:41 AM RECYCLE WORKER Body Mass Index 34.87 08/19/2022 7:41 AM RECYCLE WORKER Plan of Treatment Health Maintenance Due Date [...] Procedure Name Priority Date/Time Associated Diagnosis Comments AUDBASE RESULTS 05/27/2025 8:13 AM CDT PSA SCREEN Routine 07/08/2022 3:50 PM CDT Elevated PSA from Last 3 Months or Most Recently Relevant to Health Maintenance Results * AudBase Results (05/27/2025 8:13 AM CDT) Provider Scanning AUDIOLOGY SERVICES ORDERABLES Final Result * (ABNORMAL) PSA screen (07/08/2022 3:50 PM [...] 3:50 PM CDT 07/08/2022 6:44 PM CDT us Umm Malin MD LAB BLOOD ORDERABLES Final Resul t [facility] [address] Department [place] [address] from Last 3 Months or Most Recently Relevant to Health Maintenance Insurance [facility] Advance Directives For more information, please contact: [phone] * Full Code (Latest Code Status on File) Date Activated Date Inactivated Comments 2018 6:41 PM 02/01/2018 1:34 PM Care Teams Flooring Professional Relationship Specialty Start Date End Date Talha Samayoa MD PCP - General Family Practice 08/07/23
--- OUTSIDE RECORDS SUMMARY | 2025-08-01 14:29 | XMS_ITS | Clinical Summary ---
Author Organization [facility] Address [address] [place] [address] Phone Care Team Providers Care Hyperion Essbase Developer Name Role Phone Antony Doran Primary Care Provider [phone] Allergies Active Allergy Reactions Criticality Noted Date [...] on file Legal Sex Male 5:10 AM SOFTWARE APPLICATIONS ARCHITECT Gender Identity Not on file Sexual [...] (1 - 1-dose 75+ series) 2029 Insurance [facility] MCR RX MEDIMPACT Member Subscriber Plan / Payer (Ef fective for All Dates) Name:Uriel Renaemt Bowser Relation to Subscriber:Self Name:Oc Adam Bowser Subscriber ID:Not on file Payer ID:Not on file Group ID:[id number] Type:RX Medicare Part D Address: [place] Advance Directives For more information, please contact: [phone] * Full Code (Latest Code Status on File) Date Activated Date Inactivated Comments 04/04/2018 2:29 PM 04/08/2018 4:31 PM Care Teams Hyperion Essbase Developer Relationship Specialty Start Date End Date Antony Doran DO PCP - General Internal Medicine 04/04/18
--- OUTSIDE RECORDS SUMMARY | 2025-08-01 14:29 | XMS_ITS | Clinical Summary ---
Author Organization [facility] Address [address] [place] [address] Care Team Providers Care Precast Concrete Products Installer Name Role Phone Rob Pineda MD Primary Care Provider [phone] Social History Tobacco Use Types Packs/Day Years [...] of 2) 02/01/2004 COVID-19 Vaccine ( - 2024-2 6 season) 2025 Influenza Adult (#1) 2025 RSV Immunization or 60+ Years (1 - 1-dose 75+ series) 2029 Hepatitis A Vaccines Aged Out No long er eligible based on patient's age to complete this topic Meningococcal B Vaccine Aged Out No l onger eligible based on patient's age to complete this topic Meningococcal Vaccine Aged Out No yaima delfino eligible based on patient's age to complete this topic RSV Immunizations Under 20 Months Aged Out No longer eligible based on patient's age to complete this topic Care Teams Precast Concrete Products Installer Relationship Specialty Start Date End Date Rob Pineda MD PCP - General 04/24/14
[2025-08-01 18:43] LABS: Alanine Aminotransferase 20 U/L (6-50); Albumin Level 4.3 g/dL (3.5-5.1); Alkaline Phosphatase 62 U/L (38-126); Aspartate Amino Transferase 54 U/L (17-59); Bilirubin,Total 0.6 mg/dL (0.2-1.3); Total Protein 7.4 g/dL (6.3-8.2)
[2025-08-01 19:19] LABS: Hepatitis B Surface Antigen Negative (Negative)
[2025-08-01 19:25] LABS: HAV RESULT Negative (Negative); Hepatitis B Core IgM Result Negative (Negative)
== END 2025-08-01 14:27 | disposition home or self-care (01) ==
LOC: ANHGOSHLAB 14:27
PROVIDERS: PCP Family Medicine; Visit Provider Family Medicine
DX: R74.01 Elevation of levels of liver transaminase levels (principal)
CPT/HCPCS: 36415; 80074; 80076